=== PATIENT | male | born 1995 | race African-American/Black ===

== ENCOUNTER 2018-03-27 09:52 | Emergency (ER) | payer OTHER | END 2018-03-27 11:14 | disposition home or self-care (01) | LOC: M ED 09:52 | DX: F41.0 Panic disorder [episodic paroxysmal anxiety] (principal) | CPT/HCPCS: 99284 ==

== ENCOUNTER 2018-05-07 15:04 | Inpatient (IN) | payer OTHER ==
[2018-05-07 16:33] LABS: HEMATOCRIT 42.5 % (42.0-52.0); HEMOGLOBIN 14.1 g/dl (13.5-17.5); MEAN CORPUSCULAR HEMOGLOBIN 29.6 pg (27.0-33.0); MEAN CORPUSCULAR HGB CONC 33.2 g/dl (32.0-36.5); MEAN CORPUSCULAR VOLUME 89.1 fl (80.0-96.0); PLATELET COUNT, AUTOMATED 187 10^3/uL (150-450); RED BLOOD COUNT 4.77 10^6/uL (4.30-6.10); RED CELL DISTRIBUTION WIDTH 12.5 % (11.5-14.5); WHITE BLOOD COUNT 6.6 10^3/uL (4.0-10.0)
[2018-05-07 17:07] LABS: ALBUMIN 4.1 GM/DL (3.2-5.2); ALBUMIN/GLOBULIN RATIO 1.14 (1.00-1.93); ALKALINE PHOSPHATASE 110 U/L (45-117); ALT/SGPT 24 U/L (12-78); ANION GAP 7 MEQ/L (8-16); AST/SGOT 16 U/L (7-37); BILIRUBIN,DIRECT 0.2 MG/DL (0.0-0.2); BILIRUBIN,TOTAL 0.8 MG/DL (0.2-1.0); BLOOD UREA NITROGEN 13 MG/DL (7-18); CALCIUM LEVEL 8.9 MG/DL (8.5-10.1); CARBON DIOXIDE LEVEL 26 MEQ/L (21-32); CHLORIDE LEVEL 109 MEQ/L (98-107); CREATININE FOR GFR 0.92 MG/DL (0.70-1.30); ETHYL ALCOHOL (ETHANOL) < 0.003 % (0.000-0.010); GLUCOSE, FASTING 86 MG/DL (70-100); POTASSIUM SERUM 4.2 MEQ/L (3.5-5.1); SALICYLATE LEVEL < 1.7 MG/DL (5.0-30.0); SODIUM LEVEL 142 MEQ/L (136-145); THYROID STIMULATING HORMONE 0.877 uIU/ML (0.463-3.98); TOTAL PROTEIN 7.7 GM/DL (6.4-8.2)
[2018-05-07 17:13] LABS: ACETAMINOPHEN LEVEL < 2.0 UG/ML (10.0-30.0)
[2018-05-07 17:21] LABS: AMPHETAMINES LEVEL URINE NEGATIVE (NEGATIVE); BARBITURATES URINE NEGATIVE (NEGATIVE); BENZODIAZEPINES URINE NEGATIVE (NEGATIVE); CANNABINOIDS URINE POSITIVE (NEGATIVE); COCAINE METABOLITE URINE NEGATIVE (NEGATIVE); METHADONE URINE NEGATIVE (NEGATIVE); OPIATES URINE NEGATIVE (NEGATIVE); PHENCYCLIDINE URINE NEGATIVE (NEGATIVE)
[2018-05-07] MEDS ORDERED: LORazepam 1 MG TAB As Ordered (19:14)
[2018-05-07] MEDS ORDERED: OLANZapine ORAL DISINTEGRATING TAB 5MG As Ordered (19:14)
[2018-05-07] MEDS: HALOPERIDOL 5 MG/ML VIAL (J1630) IM (19:54)
[2018-05-07] MEDS: LORazepam 2 MG/ML VIAL (J2060) IM (19:55)
[2018-05-07] MEDS ORDERED: OLANZapine ORAL DISINTEGRATING TAB 5MG PO (20:30)
[2018-05-07] MEDS ORDERED: ACETAMINOPHEN TAB 650MG DOSE (2X325MG) PO (20:30)
[2018-05-07] MEDS ORDERED: MAALOX 30 ML SUSP *UDC PO (20:30)
[2018-05-07] MEDS ORDERED: LORazepam 1 MG TAB PO (20:30)
[2018-05-07] MEDS ORDERED: MOM 30ML SUSPENSION UDC PO (20:30)
[2018-05-08] MEDS: QUEtiapine FUMARATE 100 MG TAB PO (12:58)
[2018-05-08] MEDS: NICOTINE 21MG/24HR 1 EA TRANSDERMAL TD (13:10)
[2018-05-08] MEDS ORDERED: NICOTINE 21MG/24HR 1 EA TRANSDERMAL TD (13:45)
[2018-05-08] MEDS: busPIRone 5 MG TAB PO (23:32)
[2018-05-08] MEDS: QUEtiapine FUMARATE 25 MG TAB PO (23:32)
[2018-05-08] MEDS: traZODone 50 MG TAB PO (23:32)
[2018-05-09] MEDS: QUEtiapine FUMARATE 25 MG TAB PO ×3 (08:44→21:23)
[2018-05-09] MEDS: busPIRone 5 MG TAB PO ×3 (08:44→21:23)
[2018-05-09] MEDS: NICOTINE 21MG/24HR 1 EA TRANSDERMAL TD (08:45)
[2018-05-09] MEDS: traZODone 50 MG TAB PO (21:23)
[2018-05-10] MEDS: busPIRone 5 MG TAB PO (09:25)
[2018-05-10] MEDS: QUEtiapine FUMARATE 25 MG TAB PO (09:25)
[2018-05-10] MEDS: NICOTINE 21MG/24HR 1 EA TRANSDERMAL TD (09:28)
== END 2018-05-10 13:00 | disposition home or self-care (01) | DRG 885 ==
LOC: M ED 15:04 → M ED INP 18:14 → M PSY 19:00
DX: F33.9 Major depressive disorder, recurrent, unspecified (principal); R45.851 Suicidal ideations; F41.1 Generalized anxiety disorder; F12.90 Cannabis use, unspecified, uncomplicated; F10.10 Alcohol abuse, uncomplicated

== ENCOUNTER 2018-06-16 22:56 | Emergency (ER) | payer OTHER | END 2018-06-17 01:24 | disposition left against medical advice (07) | LOC: M ED 22:56 | DX: Z53.29 Procedure and treatment not carried out because of patient's decision for other reasons (principal) ==

== ENCOUNTER 2018-10-20 16:06 | Emergency (ER) | payer OTHER ==
[~2018-10-20] VITALS: Ht 190.5 cm; Wt 86.4 kg
[~2018-10-20 16:06] MED LIST: BUSP5TA PO; HYDR-643 PO; PARO20TA3 PO; PATIENT COMMENT; QUET1TAB7 PO; TRAZO50TA PO
[2018-10-20] MEDS ORDERED: HALOPERIDOL 5 MG/ML VIAL (J1630) IM ONE (16:30)
[2018-10-20] MEDS ORDERED: diphenhydrAMINE INJ 50MG/ML VIAL (J1200) IM ONE (16:30)
[2018-10-20] MEDS ORDERED: LORazepam 2 MG/ML VIAL (J2060) IM ONE (16:30)
[2018-10-20 17:33] LABS: HEMATOCRIT 42.1 % (42.0-52.0); HEMOGLOBIN 14.2 g/dl (13.5-17.5); MEAN CORPUSCULAR HEMOGLOBIN 29.8 pg (27.0-33.0); MEAN CORPUSCULAR HGB CONC 33.7 g/dl (32.0-36.5); MEAN CORPUSCULAR VOLUME 88.4 fl (80.0-96.0); PLATELET COUNT, AUTOMATED 246 10^3/uL (150-450); RED BLOOD COUNT 4.76 10^6/uL (4.30-6.10); WHITE BLOOD COUNT 9.8 10^3/uL (4.0-10.0)
[2018-10-20 17:59] LABS: AMPHETAMINES LEVEL URINE NEGATIVE (NEGATIVE); BARBITURATES URINE NEGATIVE (NEGATIVE); BENZODIAZEPINES URINE NEGATIVE (NEGATIVE); CANNABINOIDS URINE POSITIVE (NEGATIVE); COCAINE METABOLITE URINE NEGATIVE (NEGATIVE); METHADONE URINE NEGATIVE (NEGATIVE); OPIATES URINE NEGATIVE (NEGATIVE); PHENCYCLIDINE URINE NEGATIVE (NEGATIVE)
[2018-10-20 18:09] LABS: ACETAMINOPHEN LEVEL < 2.0 UG/ML (10.0-30.0); ALBUMIN 4.4 GM/DL (3.2-5.2); ALT/SGPT 36 U/L (12-78); BILIRUBIN,DIRECT 0.3 MG/DL (0.0-0.2); BILIRUBIN,TOTAL 1.3 MG/DL (0.2-1.0); BLOOD UREA NITROGEN 12 MG/DL (7-18); CARBON DIOXIDE LEVEL 24 MEQ/L (21-32); CHLORIDE LEVEL 104 MEQ/L (98-107); CREATININE FOR GFR 1.07 MG/DL (0.70-1.30); ETHYL ALCOHOL (ETHANOL) < 0.003 % (0.000-0.010); GLOMERULAR FILTRATION RATE > 60.0 (>60); GLUCOSE, FASTING 80 MG/DL (70-100); POTASSIUM SERUM 3.8 MEQ/L (3.5-5.1); SALICYLATE LEVEL < 1.7 MG/DL (5.0-30.0); SODIUM LEVEL 138 MEQ/L (136-145); THYROID STIMULATING HORMONE 0.564 uIU/ML (0.358-3.740)
[2018-10-20 20:53] VITALS: BP 128/74
== END 2018-10-20 20:55 | disposition home or self-care (01) ==
LOC: M ED 16:06
DX: F43.0 Acute stress reaction (principal); F32.9 Major depressive disorder, single episode, unspecified; F12.10 Cannabis abuse, uncomplicated; F10.10 Alcohol abuse, uncomplicated
CPT/HCPCS: 36415; 80048; 80076; 80307; 84443; 85027; 99284; G0480

== ENCOUNTER 2018-10-22 10:21 | Inpatient (IN) | payer OTHER ==
[~2018-10-22] VITALS: Ht 185.4 cm; Wt 87.5 kg
[2018-10-22 11:56] LABS: HEMATOCRIT 42.1 % (42.0-52.0); HEMOGLOBIN 14.3 g/dl (13.5-17.5); MEAN CORPUSCULAR HEMOGLOBIN 30.2 pg (27.0-33.0); MEAN CORPUSCULAR VOLUME 88.8 fl (80.0-96.0); PLATELET COUNT, AUTOMATED 229 10^3/uL (150-450); RED BLOOD COUNT 4.74 10^6/uL (4.30-6.10); WHITE BLOOD COUNT 5.8 10^3/uL (4.0-10.0)
[2018-10-22 12:31] LABS: AMPHETAMINES LEVEL URINE NEGATIVE (NEGATIVE); BARBITURATES URINE NEGATIVE (NEGATIVE); BENZODIAZEPINES URINE NEGATIVE (NEGATIVE); CANNABINOIDS URINE POSITIVE (NEGATIVE); COCAINE METABOLITE URINE NEGATIVE (NEGATIVE); METHADONE URINE NEGATIVE (NEGATIVE); OPIATES URINE NEGATIVE (NEGATIVE); PHENCYCLIDINE URINE NEGATIVE (NEGATIVE)
[2018-10-22 12:36] LABS: ACETAMINOPHEN LEVEL < 2.0 UG/ML (10.0-30.0); ALBUMIN 4.4 GM/DL (3.2-5.2); ALT/SGPT 40 U/L (12-78); BILIRUBIN,DIRECT 0.3 MG/DL (0.0-0.2); BILIRUBIN,TOTAL 1.2 MG/DL (0.2-1.0); BLOOD UREA NITROGEN 11 MG/DL (7-18); CALCIUM LEVEL 8.9 MG/DL (8.5-10.1); CARBON DIOXIDE LEVEL 28 MEQ/L (21-32); CHLORIDE LEVEL 104 MEQ/L (98-107); CREATININE FOR GFR 0.92 MG/DL (0.70-1.30); ETHYL ALCOHOL (ETHANOL) < 0.003 % (0.000-0.010); GLOMERULAR FILTRATION RATE > 60.0 (>60); GLUCOSE, FASTING 103 MG/DL (70-100); POTASSIUM SERUM 4.2 MEQ/L (3.5-5.1); SALICYLATE LEVEL < 1.7 MG/DL (5.0-30.0); SODIUM LEVEL 138 MEQ/L (136-145); THYROID STIMULATING HORMONE 0.603 uIU/ML (0.358-3.740); TOTAL PROTEIN 7.9 GM/DL (6.4-8.2)
[2018-10-22] MEDS ORDERED: ACETAMINOPHEN TAB 650MG DOSE (2X325MG) PO PRN (13:00)
[2018-10-22] MEDS ORDERED: MAALOX 30 ML SUSP *UDC PO PRN (13:00)
[2018-10-22] MEDS ORDERED: MOM 30ML SUSPENSION UDC PO PRN (13:00)
[2018-10-22] MEDS ORDERED: IBUP80TA PO (15:07)
[2018-10-22] MEDS: NICOTINE 14 MG/24 HR TRANSDERMAL TD SCH (15:55)
[2018-10-22] MEDS ORDERED: LORazepam 2 MG TAB PO PRN (20:45)
[2018-10-22] MEDS: FOLIC ACID 1 MG TAB PO SCH (21:36)
[2018-10-22] MEDS: THIAMINE 100 MG TAB PO SCH (21:36)
[2018-10-22] MEDS: MULTIVITAMINS/MINERALS THERAP 1 TAB PO SCH (21:36)
[2018-10-22] MEDS: traZODone 50 MG TAB PO PRN (22:24)
[2018-10-23 06:00] VITALS: BP 108/65
[2018-10-23 06:52] VITALS: BP 108/65
[2018-10-23 08:38] VITALS: BP 108/65
[2018-10-23] MEDS ORDERED: NICOTINE 14 MG/24 HR TRANSDERMAL TD SCH (09:00)
[2018-10-23] MEDS: FOLIC ACID 1 MG TAB PO SCH (09:50)
[2018-10-23] MEDS: THIAMINE 100 MG TAB PO SCH ×2 (09:50→20:42)
[2018-10-23] MEDS: MULTIVITAMINS/MINERALS THERAP 1 TAB PO SCH (09:50)
[2018-10-23] MEDS: NICOTINE 14 MG/24 HR TRANSDERMAL TD SCH (09:53)
--- NOTE | 2018-10-23 10:03 | HPEPDOC ---
[facility] Medical History & Physical Date of Admission Oct 22, 2018 History and Physical PCP: [facility] ATTENDING: Dr. Alejandra Oviedo HPI: 23yoM admitted to [facility] for unspecified depressive disorder, being medically examined today. No acute medical complaints today. Denies any fevers, chills, weakness, fatigue, FERNANDEZ, CP, SOB, cough, palpitations, abdominal pain, N/V/D or changes in bowel or bladder habits. PMHx: Anxiety Panic attack Depression History of SI PSHX: Rt arm fracture repair as child SOCHX: Resides in: [place], originally from [place] Marital Status: Kids: None Employment: Active duty Tobacco use: Denies ETOH: States "alot" per night Illicit Drugs: marijuana IV Drug Use: Denies Tattoos done unprofessionally: Denies FAMHX: Mother: Alive, well Father: Alive, diabetes, prostate cancer Siblings: One brother Alive, well Children: None Unexpected deaths due to medical reasons: None. ROS: As noted in HPI, otherwise 11pt ROS of systems reviewed and unremarkable. PE: GEN: 23yoM, appears stated age. Well-nourished, well developed. No acute distress. Alert and oriented x 3. Pleasant, interactive. HEENT: Normocephalic, atraumatic. Pupils are equal, round, and reactive to light. Extraocular movements are intact. No nystagmus appreciated. Sclera are nonicteric. Conjunctiva without injection. Nose midline. Nasal turbinates without bogginess. EACs both patent BL. TMs both visualized and iglesias with good cone of light, no bulging or erythema. No facial asymmetry. Moist mucous membranes. Dentition fair. Pharynx pink and moist, no cobblestoning. Neck supple, trachea midline. No lymphadenopathy or thyromegaly appreciated. CHEST: Regular rate and rhythm, +S1, +S2 LUNGS: Clear to auscultation bilaterally. No wheezes, rales, or rhonchi. Breathing appears symmetric and easy. Patient is speaking in full sentences. No accessory muscle use. ABD: Round, soft, non-tender, non-distended. +Bowel sounds throughout. No rebound or guarding. No costovertebral angle tenderness. EXT: Pulses 2+ bilaterally dorsalis pedis and radial. No lower extremity edema appreciated. SKIN: Maria Antonia, dry, warm. Capillary refill <2sec. No rashes. NEURO: Alert and oriented x 3. Cranial nerves III-XII are intact. No focal deficits appreciated. EKG: pending A&P: 23yoM admitted to [facility] for unspecified depressive disorder, 1. Psych. Plan per Psychiatry. Obtain baseline EKG to assure the safety of psychiatric medications as they can prolong the QT interval. 2. Follow up with PCP on discharge. 3. Substance use. Management per psychiatry. Continue with MVI, Thiamine, and Folic Acid supplementation. Vital Signs Vital Signs Date Time Temp Pulse Resp B/P (MAP) Pulse Ox O2 Delivery O2 Flow Rate FiO2 10/23/18 08:38 97 108/65 10/23/18 06:52 98.9 14 10/22/18 15:03 97 10/22/18 10:33 Room Air Laboratory Data Labs 24H Laboratory Tests 2 10/22/18 11:39: Urine Amphetamines Screen NEGATIVE, Urine Benzodiazepines Screen NEGATIVE, Urine Opiates Screen NEGATIVE, Urine Methadone Screen NEGATIVE, Urine Barbiturates Screen NEGATIVE, Urine Phencyclidine Screen NEGATIVE, Urine Cocaine Metabolite Screen NEGATIVE, Urine Cannabinoids Screen POSITIVEH 10/22/18 11:44: Nucleated Red Blood Cells % (auto) 0.0, Anion Gap 6L, Glomerular Filtration Rate > 60.0, Calcium Level 8.9, Aspartate Amino Transf (AST/SGOT) 39H, Alanine Aminotransferase (ALT/SGPT) 40, Alkaline Phosphatase 100, Total Bilirubin 1.2H, Direct Bilirubin 0.3H, Total Protein 7.9, Albumin 4.4, Albumin/Globulin Ratio 1.26, Thyroid Stimulating Hormone (TSH) 0.603, Salicylates Level < 1.7L, Acetaminophen Level < 2.0L, Ethyl Alcohol Level < 0.003 CBC/BMP Laboratory Tests 10/22/18 11:44 Red Blood Count 4.74, Mean Corpuscular Volume 88.8, Mean Corpuscular Hemoglobin 30.2, Mean Corpuscular Hemoglobin Concent 34.0, Red Cell Distribution Width 12.7 Home Medications Scheduled PRN Ibuprofen (Ibuprofen) 800 Mg Tab, 800 MG PO TID PRN for PAIN Allergies Coded Allergies: No Known Allergies (Unverified , 03/29/18) Josie Serrano Oct 23, 2018 10:03
[2018-10-23] MEDS ORDERED: LORazepam 2 MG TAB PO STA (11:24)
--- NOTE | 2018-10-23 12:05 | MHHPEPDOC ---
General Date Of Admission: Oct 22, 2018 Legal Status: 9.39 Chief Complaint "I've been suicidal, they threw me in the barracks, they just don't care" History of Present Illness HISTORY OF THE PRESENT ILLNESS: Patient is a 23 -year-old , male, who according to ED report: "Reason for Referral: Pt was brought to the ED by his due to SI with no plan. He also c/o increasing depression & anxiety. Chief Complaint Pt was seen in the ED & discharged on 10/20/18. At that time, he was found by MP's in his car with a razor in his hand. He told ED staff that he was not suicidal at that time. Today he states that he lied & he really was suicidal that day. He continues to be suicidal today but without a plan. He also c/o panic attacks. He has had anxiety & depression for the past year, but it has become worse during the past six months. His main stressor is that he does not like being in the [employer]. His job makes him anxious & when he becomes anxious he tends to avoid the trigger. Therefore, he has been late to formation several times & recently received an Article 15 & is currently on extra duty." Psychiatric Review of Systems Depression (2 or more weeks): depressed mood, anhedonia, insomnia/hypersomnia, feelings of excess/guilt, feelings of worthlesness, decreased energy, difficulty concentrating, appetite changes, psychomotor changes, suicidal thoughts Lexis (4 or more days of): denies PTSD: denies Anxiety: gen/non-specific anxiety, situational anxiety, stressor related anxiety, panic attacks Anxiety/ 6 months or more of: restlessness, keyed up, easily fatigued, difficulty concentrating, irritability, muscle tension, sleep disturbance Past Psychiatric History Previous Psychiatric Diagnosis: Major Depressive disorder, recurrent. R/O bipolar disorder mixed Previous Psychiatric Admissions: March 2018, Suicide Attempts: . Psychiatric Follow-up: [facility] Psychiatric medications: Atarax, Paxil and Trazodone Past Medical History Medical Problems None Head Injury: No Seizures: No Hospitalizations: Yes Surgeries: No Family Medical/Psychiatric HX Psychiatric Disorders: Yes (His mother has bipolar disorder) Addiction: No Suicide Attemps/Completions: No Addiction History other (Amanda, he recently tested positive for it (now in the ED, before [facility])) Social History PATIENT DEVELOPED A PANICK ATTACK WHEN I WAS INTERVIEWING AND REFUSED TO PROVIDE WITH MORE INFORMATION, HE SAID HE JUST WANTED TO SLEEP AND NOT TALK TO ANYONE. THE FOLLOWING INFORMATION WAS OBTAINED FROM PATIENT'S PREVIOUS RECORDS (DR. HARGROVE'S NOTE ON HIM) s per Dr. Hargrove's note on previous hospitalization: " Patient was born and raised in [place], [place]. Relationship with his mother is good. She has history of bipolar disorder. Relationship with his father is poor. He has little contact with his father. Patient had one brother. Patient has a good w ork history before joining the [employer]. Patient is . His is a college student. Currently he has college in [place]. Patient has no children." Mental Status Examination General Appearance: well groomed, appears stated age, hospital scubs/clothing Build: average Demeanor: mistrustful, withdrawn, preoccupied, very figety Eye Contact: avoidant, poor Activity: agitated, anxious Behavior: cooperative, restless Speech: spontaneous, low in volume Mood: depressed, anxious Affect: constricted, flat, labile, anxious Thought Process: logical/linear, associative Thought Content (Delusions): none reported Thought Content (Other): ideas of reference Thought Content (Aggressive): none reported Perception (Hallucinations): none reported Perception (Other): none reported Cognition (Impairment of): none reported Cognition(Intelligence Est.): average Oriented: Awake, Alert, Oriented times three Insight: poor Judgment: Poor Psychosis: Denies Diagnoses 1. Major Depressive Disorder, recurrent 2. Panic attacks, r/O Panic disorder Assessment Patient is very labile, he experienced a panic attack while I was interviewing him he became tearful, he said he was tired of telling everyone he eas depressed and suicidal. He expressed his hopelessness and helplessness. He is very ill but he is probably more anxious because he knows he tested positive for marihuana and that is going to create more problems for him in the [employer]. Initial Treatment Plan 1. Patient was admitted on a [9.39] status. 2. Complete history was obtained. 3. With patients permission, family will be contacted and database will be expanded. 4. Patients medication regimen will be reviewed and changed accordingly. 5. Patient will be provided with protected environment. 6. Patient will be treated with individual, group, and milieu therapies. 7. Patient will receive supportive psych-education. 8. Discharge planning will commence immediately. 9. Outpatient follow-up treatment will be strongly recommended. 10. The initial treatment plan will focus initially on: * Depression. * Anxiety * Risk for suicide. * Substance abuse. ESTIMATED LENGTH OF STAY: 5-7DAYS. TIME SPENT COUNSELING AND COORDINATING INITIAL CARE: 45 minutes. Vital Signs Vital Signs Date Time Temp Pulse Resp B/P (MAP) Pulse Ox O2 Delivery O2 Flow Rate FiO2 10/23/18 08:38 97 108/65 10/23/18 06:52 98.9 14 10/22/18 15:03 97 10/22/18 10:33 Room Air Medications Scheduled PRN Ibuprofen (Ibuprofen) 800 Mg Tab, 800 MG PO TID PRN for PAIN, (Reported) Allergies Coded Allergies: No Known Allergies (Unverified , 03/29/18) MERLENE YIN MD Oct 23, 2018 11:52
[2018-10-23] MEDS: SERTRALINE HCL 50 MG TAB PO SCH (12:57)
[2018-10-23] MEDS: GABAPENTIN 100 MG CAP PO SCH ×2 (15:44→20:42)
[2018-10-23 18:00] VITALS: BP 127/78
[2018-10-23] MEDS: PROPRANOLOL 10 MG TAB PO PRN (20:42)
[2018-10-23 20:48] VITALS: BP 125/80
[2018-10-23] MEDS: traZODone 50 MG TAB PO PRN (22:52)
--- NOTE | 2018-10-24 00:51 | ECGEPIP ---
Stationary ECG Study [facility] Test Date: 2018-10-23 Pat Name: GISELL LEE Department: Room: [place] [address] Gender: M [employer] Supervisor: MELY : 1995 Requested By: Josie Serrano Order Number: [id number] Reading MD: Tez Martin Measurements Intervals Patrick Rate: 87 P: 56 DC: 124 QRS: 40 QRSD: 93 T: 27 QT: 357 QTc: 430 Interpretive Statements SINUS RHYTHM WITH SINUS ARRHYTHMIA NONSPECIFIC T-WAVE ABNORMALITY PRIOR TRACING ON 03/30/2018 AT 15:34:01, MILD SINUS BRADYCARDIA THEN WAS NOTED Electronically Signed On 10-24-2018 0:51:08 EST by Tez Martin
[2018-10-24 06:30] VITALS: BP 125/80
[2018-10-24 06:53] VITALS: BP 123/57
[2018-10-24] MEDS: MULTIVITAMINS/MINERALS THERAP 1 TAB PO SCH (09:48)
[2018-10-24] MEDS: GABAPENTIN 100 MG CAP PO SCH ×3 (09:48→20:37)
[2018-10-24] MEDS: SERTRALINE HCL 50 MG TAB PO SCH (09:48)
[2018-10-24] MEDS: THIAMINE 100 MG TAB PO SCH ×2 (09:48→20:37)
[2018-10-24] MEDS: FOLIC ACID 1 MG TAB PO SCH (09:48)
[2018-10-24] MEDS: NICOTINE 14 MG/24 HR TRANSDERMAL TD SCH (09:49)
[2018-10-24 14:00] VITALS: BP 118/72
[2018-10-24 18:00] VITALS: BP 129/64
--- NOTE | 2018-10-24 19:29 | MHIPNPDOC ---
[facility] Progress Note Progress Note DATE OF SERVICE: 10/24/18 HISTORY: Chief Complaint "I've been suicidal, they threw me in the barracks, they just don't care" History of Present Illness HISTORY OF THE PRESENT ILLNESS: Patient is a 23 -year-old , male, who according to ED report: "Reason for Referral: Pt was brought to the ED by his due to SI with no plan. He also c/o increasing depression & anxiety. Chief Complaint Pt was seen in the ED & discharged on 10/20/18. At that time, he was found by MP's in his car with a razor in his hand. He told ED staff that he was not suicidal at that time. Today he states that he lied & he really was suicidal that day. He continues to be suicidal today but without a plan. He also c/o panic attacks. He has had anxiety & depression for the past year, but it has become worse during the past six months. His main stressor is that he does not like being in the [employer]. His job makes him anxious & when he becomes anxious he tends to avoid the trigger. Therefore, he has been late to formation several times & recently received an Article 15 & is currently on extra duty." VITAL SIGNS: See below. NEW TEST RESULTS: See below CURRENT MEDICATIONS: See below. MENTAL STATUS EXAMINATION: General Appearance: well groomed, appears stated age, hospital scubs/clothing Build: average Demeanor: apathetic, psychomotor retardation, laying in bed, Eye Contact: avoidant, poor Activity: slow, laying in bed, psychomotor retardation Behavior: cooperative, withdrawn, depressed Speech: impoverished, non spontaneous,short, brief, shallow responses, low in volume Mood: depressed Affect: constricted, flat, labile, anxious Thought Process: logical/linear, associative Thought Content (Delusions): none reported Thought Content (Other): ideas of reference Thought Content (Aggressive): none reported Perception (Hallucinations): none reported Perception (Other): none reported Cognition (Impairment of): none reported Cognition(Intelligence Est.): average Oriented: Awake, Alert, Oriented times three Insight: poor Judgment: Poor Psychosis: Denies Diagnoses 1. Major Depressive Disorder, recurrent 2. Panic attacks, r/O Panic disorder ASSESSMENT: Patient continues to be depressed, but he has not had any other episodes of severe anxiety as he did yesterday. he is hopeless,helpless, says he has less suicidal ideation but reports feeling better, his suicidal thoughts are less frequent and intense. MANAGEMENT PLAN: Will continue with the same treatment plan TIME SPENT: 15 minutes. Vital Signs Vital Signs Date Time Temp Pulse Resp B/P (MAP) Pulse Ox O2 Delivery O2 Flow Rate FiO2 10/24/18 18:00 97.7 67 16 129/64 (85) 10/22/18 15:03 97 10/22/18 10:33 Room Air Current Medications Current Medications Acetaminophen (Tylenol Tab) 650 mg Q6HP PRN PO HEADACHE or DISCOMFORT; Start 10/22/18 at 13:00 Al Hydrox/Mg Hydrox/Simethicone (Mylanta) 30 ml Q4HP PRN PO HEARTBURN/INDIGESTION; Start 10/22/18 at 13:00 Aripiprazole (AbiLIFY) 2.5 mg QHS PO Last administered on 10/23/18at 20:41; Start 10/23/18 at 21:00 Folic Acid (Folic Acid) 1 mg DAILY PO Last administered on 10/24/18at 09:48; Start 10/22/18 at 09:00 Gabapentin (Neurontin) 200 mg TID PO Last administered on 10/24/18at 15:37; Start 10/23/18 at 16:00 Home Med (Med Rec Complete!) ASDIRECTED XX ; Start 10/22/18 at 15:15; Stop 10/22/18 at 15:15; Status DC Lorazepam (Ativan) 2 mg ASDIRECTED PRN PO SEE PROTOCOL; Start 10/22/18 at 20:45 Lorazepam (Ativan) 2 mg STAT STAT PO Last administered on 10/23/18at 11:28; Start 10/23/18 at 11:24; Stop 10/23/18 at 11:26; Status DC Magnesium Hydroxide (Milk Of Magnesia) 30 ml DAILYPRN PRN PO CONSTIPATION; Start 10/22/18 at 13:00 Multivitamins (Theragram-M) 1 tab DAILY PO Last administered on 10/24/18at 09:48; Start 10/22/18 at 09:00 Nicotine (Nicoderm Cq 14mg) 1 patch DAILY TD Last administered on 10/24/18at 09:49; Start 10/22/18 at 09:00 Nicotine (Nicoderm Cq 14mg) 1 patch DAILY TD ; Start 10/23/18 at 09:00; Stop 10/23/18 at 09:00; Status DC Propranolol HCl (Inderal) 10 mg TID PRN PO ANXIETY/AGITATION Last administered on 10/23/18at 20:42; Start 10/23/18 at 12:30 Sertraline HCl (Zoloft) 50 mg QAM PO Last administered on 10/24/18 09:48; Start 10/23/18 at 09:00 Thiamine HCl (Thiamine HCl) 100 mg BID PO Last administered on 10/24/18at 09:48; Start 10/22/18 at 21:00; Stop 10/25/18 at 09:01 Trazodone HCl (Desyrel) 50 mg QHSP PRN PO INSOMNIA Last administered on 10/23/18at 22:52; Start 10/22/18 at 13:00 Allergies Coded Allergies: No Known Allergies (Unverified , 03/29/18) MERLENE YIN MD Oct 24, 2018 19:21
[2018-10-24] MEDS: traZODone 50 MG TAB PO PRN (21:48)
[2018-10-25 07:04] VITALS: BP 108/58
[2018-10-25] MEDS: SERTRALINE HCL 50 MG TAB PO SCH (09:47)
[2018-10-25] MEDS: FOLIC ACID 1 MG TAB PO SCH (09:47)
[2018-10-25] MEDS: THIAMINE 100 MG TAB PO SCH (09:47)
[2018-10-25] MEDS: GABAPENTIN 100 MG CAP PO SCH ×3 (09:47→22:08)
[2018-10-25] MEDS: MULTIVITAMINS/MINERALS THERAP 1 TAB PO SCH (09:47)
[2018-10-25] MEDS: NICOTINE 14 MG/24 HR TRANSDERMAL TD SCH (09:48)
[2018-10-25 18:00] VITALS: BP 130/84
[2018-10-25 21:36] VITALS: BP 130/84
[2018-10-25] MEDS: traZODone 50 MG TAB PO PRN (22:09)
[2018-10-26 07:48] VITALS: BP 137/61
[2018-10-26] MEDS: FOLIC ACID 1 MG TAB PO SCH (09:31)
[2018-10-26] MEDS: GABAPENTIN 100 MG CAP PO SCH ×3 (09:31→22:20)
[2018-10-26] MEDS: SERTRALINE HCL 25 MG TABLET PO SCH (09:32)
[2018-10-26] MEDS: MULTIVITAMINS/MINERALS THERAP 1 TAB PO SCH (09:32)
[2018-10-26] MEDS: NICOTINE 14 MG/24 HR TRANSDERMAL TD SCH (09:32)
[2018-10-26 10:13] VITALS: BP 137/61
--- NOTE | 2018-10-26 14:50 | MHIPNPDOC ---
[facility] Progress Note Progress Note DATE OF SERVICE: 10/26/18 CHIEF COMPLAINT: "I've been suicidal, they threw me in the barracks, they just don't care" HISTORY OF THE PRESENT ILLNESS: Patient is a 23 -year-old , male, who according to ED report: "Pt was brought to the ED by his due to SI with no plan. He also c/o increasing depression & anxiety. Pt was seen in the ED & discharged on 10/20/18. At that time, he was found by MP's in his car with a razor in his hand. He told ED staff that he was not suicidal at that time. Today he states that he lied & he really was suicidal that day. He continues to be suicidal today but without a plan. He also c/o panic attacks. He has had anxiety & depression for the past year, but it has become worse during the past six months. His main stressor is that he does not like being in the [employer]. His job makes him anxious & when he becomes anxious he tends to avoid the trigger. Therefore, he has been late to formation several times & recently received an Article 15 & is currently on extra duty." VITAL SIGNS: See below. NEW TEST RESULTS: See below CURRENT MEDICATIONS: See below. MENTAL STATUS EXAMINATION: General Appearance: well groomed, appears stated age, hospital scubs/clothing Build: average Demeanor: apathetic, psychomotor agitation laying in bed, Eye Contact: avoidant, poor Activity: slow, laying in bed, psychomotor retardation Behavior: cooperative, withdrawn, depressed Speech: impoverished, non spontaneous,short, brief, shallow responses, low in volume Mood: depressed / anxious Affect: constricted, flat, labile, anxious Thought Process: logical/linear, associative Thought Content (Delusions): none reported Thought Content (Other): ideas of reference Thought Content (Aggressive): none reported Perception (Hallucinations): none reported Perception (Other): none reported Cognition (Impairment of): none reported Cognition(Intelligence Est.): average Oriented: Awake, Alert, Oriented times three Insight: poor Judgment: Poor Psychosis: Denies DIAGNOSIS 1. Major Depressive Disorder, recurrent 2. Panic attacks, r/O Panic disorder ASSESSMENT: Patient continues to be both depressed and anxious. He has been attending groups but is unsure regarding their usefulness. He does complain of being excessively tired. Patient was informed that this is likely a side effect of his medication. A plan was devised with Tayo to take his medication around 7 at night once he returns to post. 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 He was agreeable with this plan. MANAGEMENT PLAN: Will continue with the same treatment plan TIME SPENT: 15 minutes. Vital Signs Vital Signs Date Time Temp Pulse Resp B/P (MAP) Pulse Ox O2 Delivery O2 Flow Rate FiO2 10/26/18 10:13 97.7 58 14 137/61 97 10/22/18 10:33 Room Air Current Medications Current Medications Acetaminophen (Tylenol Tab) 650 mg Q6HP PRN PO HEADACHE or DISCOMFORT; Start 10/22/18 at 13:00 Al Hydrox/Mg Hydrox/Simethicone (Mylanta) 30 ml Q4HP PRN PO HEARTBURN/INDIGESTION; Start 10/22/18 at 13:00 Aripiprazole (AbiLIFY) 2.5 mg QHS PO Last administered on 10/25/18at 21:00; Start 10/23/18 at 21:00 Folic Acid (Folic Acid) 1 mg DAILY PO Last administered on 10/26/18at 09:31; Start 10/22/18 at 09:00 Gabapentin (Neurontin) 200 mg TID PO Last administered on 10/26/18at 09:31; Start 10/23/18 at 16:00 Home Med (Med Rec Complete!) ASDIRECTED XX ; Start 10/22/18 at 15:15; Stop 10/22/18 at 15:15; Status DC Lorazepam (Ativan) 2 mg ASDIRECTED PRN PO SEE PROTOCOL; Start 10/22/18 at 20:45 Lorazepam (Ativan) 2 mg STAT STAT PO Last administered on 10/23/18at 11:28; Start 10/23/18 at 11:24; Stop 10/23/18 at 11:26; Status DC Magnesium Hydroxide (Milk Of Magnesia) 30 ml DAILYPRN PRN PO CONSTIPATION; Start 10/22/18 at 13:00 Multivitamins (Theragram-M) 1 tab DAILY PO Last administered on 10/26/18at 09:32; Start 10/22/18 at 09:00 Nicotine (Nicoderm Cq 14mg) 1 patch DAILY TD Last administered on 10/26/18 09:32; Start 10/22/18 at 09:00 Nicotine (Nicoderm Cq 14mg) 1 patch DAILY TD ; Start 10/23/18 at 09:00; Stop 10/23/18 at 09:00; Status DC Propranolol HCl (Inderal) 10 mg TID PRN PO ANXIETY/AGITATION Last administered on 10/23/18at 20:42; Start 10/23/18 at 12:30 Sertraline HCl (Zoloft) 50 mg QAM PO Last administered on 10/25/18at 09:47; Start 10/23/18 at 09:00; Stop 10/25/18 at 19:20; Status DC Sertraline HCl (Zoloft) 75 mg QAM PO Last administered on 10/26/18 09:32; Start 10/26/18 at 09:00 Thiamine HCl (Thiamine HCl) 100 mg BID PO Last administered on 10/25/18at 09:47; Start 10/22/18 at 21:00; Stop 10/25/18 at 09:01; Status DC Trazodone HCl (Desyrel) 50 mg QHSP PRN PO INSOMNIA Last administered on 10/25/18at 22:09; Start 10/22/18 at 13:00 Allergies Coded Allergies: No Known Allergies (Unverified , 03/29/18) GME ATTESTATION GME ATTESTATION My faculty preceptor for this patient encounter was physically present during the encounter and was fully available. All aspects of the patient interview, examination, medical decision making process, and medical care plan development were reviewed and approved by the faculty preceptor. The faculty preceptor is aware and concurs with the plan as stated in the body of this note and will attest to such by his/her cosignature. RADHA PERRY DO Oct 26, 2018 14:49
[2018-10-26 18:00] VITALS: BP 130/86
[2018-10-26] MEDS: traZODone 50 MG TAB PO PRN (22:20)
[2018-10-27 06:47] VITALS: BP 107/54
[2018-10-27] MEDS: SERTRALINE HCL 25 MG TABLET PO SCH (09:17)
[2018-10-27] MEDS: MULTIVITAMINS/MINERALS THERAP 1 TAB PO SCH (09:17)
[2018-10-27] MEDS: GABAPENTIN 100 MG CAP PO SCH ×3 (09:17→23:57)
[2018-10-27] MEDS: FOLIC ACID 1 MG TAB PO SCH (09:17)
[2018-10-27] MEDS: NICOTINE 14 MG/24 HR TRANSDERMAL TD SCH (09:18)
[2018-10-27] MEDS: PROPRANOLOL 10 MG TAB PO PRN (15:14)
[2018-10-27] MEDS ORDERED: hydrOXYzine 50 MG TAB PO ONE (16:30)
[2018-10-27 18:00] VITALS: BP 126/74
[2018-10-28 06:47] VITALS: BP 98/54
[2018-10-28] MEDS: GABAPENTIN 100 MG CAP PO SCH ×3 (09:55→22:08)
[2018-10-28] MEDS: MULTIVITAMINS/MINERALS THERAP 1 TAB PO SCH (09:56)
[2018-10-28] MEDS: FOLIC ACID 1 MG TAB PO SCH (09:56)
[2018-10-28] MEDS: SERTRALINE HCL 25 MG TABLET PO SCH (09:56)
[2018-10-28] MEDS: NICOTINE 14 MG/24 HR TRANSDERMAL TD SCH (09:57)
[2018-10-28] MEDS: PROPRANOLOL 10 MG TAB PO PRN (16:43)
[2018-10-28 18:00] VITALS: BP 138/97
[2018-10-28] MEDS: hydrOXYzine 50 MG TAB PO PRN (18:28)
[2018-10-28] MEDS: traZODone 50 MG TAB PO PRN ×2 (22:07)
[2018-10-29 06:40] VITALS: BP 138/73
[2018-10-29] MEDS: SERTRALINE HCL 25 MG TABLET PO SCH (08:51)
[2018-10-29] MEDS: FOLIC ACID 1 MG TAB PO SCH (08:51)
[2018-10-29] MEDS: NICOTINE 14 MG/24 HR TRANSDERMAL TD SCH (08:51)
[2018-10-29] MEDS: MULTIVITAMINS/MINERALS THERAP 1 TAB PO SCH (08:51)
[2018-10-29] MEDS: GABAPENTIN 100 MG CAP PO SCH ×3 (08:51→22:42)
--- NOTE | 2018-10-29 14:42 | IPNPDOC ---
Date Seen The patient was seen on 10/29/18. Progress Note CHIEF COMPLAINT: "I've been suicidal, they threw me in the barracks, they just don't care" HISTORY OF THE PRESENT ILLNESS: Patient is a 23 -year-old , male, who according to ED report: "Pt was brought to the ED by his due to SI with no plan. He also c/o increasing depression & anxiety. Pt was seen in the ED & discharged on 10/20/18. At that time, he was found by MP's in his car with a razor in his hand. He told ED staff that he was not suicidal at that time. Today he states that he lied & he really was suicidal that day. He continues to be suicidal today but without a plan. He also c/o panic attacks. He has had anxiety & depression for the past year, but it has become worse during the past six months. His main stressor is that he does not like being in the [employer]. His job makes him anxious & when he becomes anxious he tends to avoid the trigger. Therefore, he has been late to formation several times & recently received an Article 15 & is currently on extra duty." VITAL SIGNS: See below. NEW TEST RESULTS: See below CURRENT MEDICATIONS: See below. MENTAL STATUS EXAMINATION: General Appearance: well groomed, appears stated age, hospital scubs/clothing Build: average Demeanor: psychomotor agitation Eye Contact: avoidant, poor Activity: laying on bed, sprawled on couch Behavior: over dramatic Speech: impoverished, non spontaneous,short, brief, shallow responses, low in volume Mood: depressed / anxious Affect: constricted, flat, labile, anxious Thought Process: logical/linear, associative Thought Content (Delusions): none reported Thought Content (Other): ideas of reference Thought Content (Aggressive): none reported Perception (Hallucinations): none reported Perception (Other): none reported Cognition (Impairment of): none reported Cognition(Intelligence Est.): average Oriented: Awake, Alert, Oriented times three Insight: poor Judgment: Poor Psychosis: Denies DIAGNOSIS 1. Major Depressive Disorder, recurrent 2. Panic attacks, r/O Panic disorder 3. Borderline personality ASSESSMENT: Patient was interviewed today. He denies any suicidal ideations, denies homicidal ideations, is not psychotic. He does complain of the first half of his days being worse and having a hard time getting out of bed. He says that after that his days gradually get better. He has recently enjoyed time with his girlfriend when she visited and watching the football game. MANAGEMENT PLAN: Will continue with the same treatment plan VS, I&O, 24H, Fishbone Vital Signs/I&O Vital Signs Date Time Temp Pulse Resp B/P (MAP) Pulse Ox O2 Delivery O2 Flow Rate FiO2 10/29/18 06:40 97.8 60 14 138/73 (94) 10/28/18 18:00 99 GME ATTESTATION GME ATTESTATION My faculty preceptor for this patient encounter was physically present during the encounter and was fully available. All aspects of the patient interview, examination, medical decision making process, and medical care plan development were reviewed and approved by the faculty preceptor. The faculty preceptor is aware and concurs with the plan as stated in the body of this note and will attest to such by his/her cosignature. GERARD TIERNEY S-III Oct 29, 2018 14:42
[2018-10-29 15:19] VITALS: BP 126/66
[2018-10-29] MEDS: PROPRANOLOL 10 MG TAB PO PRN (15:19)
[2018-10-29] MEDS: hydrOXYzine 50 MG TAB PO PRN (16:50)
[2018-10-29 18:00] VITALS: BP 121/61
[2018-10-29] MEDS ORDERED: PROP10TAB PO (22:26)
[2018-10-29] MEDS ORDERED: TRAZO50TA PO (22:26)
[2018-10-29] MEDS ORDERED: NICO14PA TD (22:26)
[2018-10-29] MEDS ORDERED: SERT25TA PO (22:26)
[2018-10-29] MEDS ORDERED: ARIP5TA PO (22:26)
[2018-10-29] MEDS ORDERED: GABA-1171 PO (22:26)
[2018-10-29] MEDS ORDERED: HYDRO50TAB PO (22:26)
[2018-10-29] MEDS: traZODone 50 MG TAB PO PRN (22:42)
[2018-10-30 06:28] VITALS: BP 97/53
[2018-10-30] MEDS: SERTRALINE HCL 25 MG TABLET PO SCH (09:00)
[2018-10-30] MEDS: FOLIC ACID 1 MG TAB PO SCH (09:00)
[2018-10-30] MEDS: MULTIVITAMINS/MINERALS THERAP 1 TAB PO SCH (09:00)
[2018-10-30] MEDS: GABAPENTIN 100 MG CAP PO SCH (09:00)
[2018-10-30] MEDS: NICOTINE 14 MG/24 HR TRANSDERMAL TD SCH (09:01)
--- NOTE | 2018-10-30 17:43 | MHIPNPDOC ---
[facility] Progress Note Progress Note DATE OF SERVICE: 10/30/18 CHIEF COMPLAINT: "I've been suicidal, they threw me in the barracks, they just don't care" HISTORY OF THE PRESENT ILLNESS: Patient is a 23 -year-old , male, who according to ED report: "Pt was brought to the ED by his due to SI with no plan. He also c/o increasing depression & anxiety. Pt was seen in the ED & discharged on 10/20/18. At that time, he was found by MP's in his car with a razor in his hand. He told ED staff that he was not suicidal at that time. Today he states that he lied & he really was suicidal that day. He continues to be suicidal today but without a plan. He also c/o panic attacks. He has had anxiety & depression for the past year, but it has become worse during the past six months. His main stressor is that he does not like being in the [employer]. His job makes him anxious & when he becomes anxious he tends to avoid the trigger. Therefore, he has been late to formation several times & recently received an Article 15 & is currently on extra duty." VITAL SIGNS: See below. NEW TEST RESULTS: See below CURRENT MEDICATIONS: See below. MENTAL STATUS EXAMINATION: General Appearance: well groomed, appears stated age, hospital scubs/clothing Build: average Demeanor: psychomotor agitation Eye Contact: average, much improved Activity: sitting up straight, engaged in conversation Behavior: over dramatic Speech: logical, normal tone, normal volume Mood: average Affect: less constricted, labile Thought Process: logical/linear, associative Thought Content (Delusions): none reported Thought Content (Other): ideas of reference Thought Content (Aggressive): none reported Perception (Hallucinations): none reported Perception (Other): none reported Cognition (Impairment of): none reported Cognition(Intelligence Est.): average Oriented: Awake, Alert, Oriented times three Insight: Improved Judgment: Improved Psychosis: Denies DIAGNOSIS 1. Major Depressive Disorder, recurrent 2. Panic attacks, r/O Panic disorder 3. Borderline personality ASSESSMENT: Patient was interviewed today. He denies any suicidal ideations, denies homicidal ideations, is not psychotic. He says that he is doing better and "excited" to be being discharged. He did say that he feels like this is a never ending absentee-[place]. 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 He is also concerned that once he returns back to post that behavioral health will take away his medications. He says he has learned mechanisms to cope with anxiety and once he is discharged is going to start working out and taking care of his body. MANAGEMENT PLAN: Will be discharged today. Vital Signs Vital Signs Date Time Temp Pulse Resp B/P (MAP) Pulse Ox O2 Delivery O2 Flow Rate FiO2 10/30/18 06:28 98.0 59 12 97/53 (68) 10/28/18 18:00 99 Current Medications Current Medications Acetaminophen (Tylenol Tab) 650 mg Q6HP PRN PO HEADACHE or DISCOMFORT; Start 10/22/18 at 13:00; Stop 10/30/18 at 10:54; Status DC Al Hydrox/Mg Hydrox/Simethicone (Mylanta) 30 ml Q4HP PRN PO HEARTBURN/INDIGESTION; Start 10/22/18 at 13:00; Stop 10/30/18 at 10:54; Status D C Aripiprazole (AbiLIFY) 2.5 mg QHS PO Last administered on 10/29/18at 22:43; Start 10/23/18 at 21:00; Stop 10/30/18 at 10:55; Status DC Folic Acid (Folic Acid) 1 mg DAILY PO Last administered on 10/30/18at 09:00; Start 10/22/18 at 09:00; Stop 10/30/18 at 10:54; Status DC Gabapentin (Neurontin) 200 mg TID PO Last administered on 10/30/18at 09:00; Start 10/23/18 at 16:00; Stop 10/30/18 at 10:55; Status DC Home Med (Med Rec Complete!) ASDIRECTED XX ; Start 10/22/18 at 15:15; Stop 10/22/18 at 15:15; Status DC Hydroxyzine HCl (Atarax) 50 mg Q6HP PRN PO ANXIETY/AGITATION Last administered on 10/29/18at 16:50; Start 10/28/18 at 18:30; Stop 10/30/18 at 10:55; Status DC Lorazepam (Ativan) 2 mg ASDIRECTED PRN PO SEE PROTOCOL; Start 10/22/18 at 20:45; Status Cancel Lorazepam (Ativan) 2 mg STAT STAT PO Last administered on 10/23/18at 11:28; Start 10/23/18 at 11:24; Stop 10/23/18 at 11:26; Status DC Magnesium Hydroxide (Milk Of Magnesia) 30 ml DAILYPRN PRN PO CONSTIPATION; Start 10/22/18 at 13:00; Stop 10/30/18 at 10:54; Status DC Multivitamins (Theragram-M) 1 tab DAILY PO Last administered on 10/30/18at 09:00; Start 10/22/18 at 09:00; Stop 10/30/18 at 10:55; Status DC Nicotine (Nicoderm Cq 14mg) 1 patch DAILY TD Last administered on 10/30/18at 09:01; Start 10/22/18 at 09:00; Stop 10/30/18 at 10:54; Status DC Nicotine (Nicoderm Cq 14mg) 1 patch DAILY TD ; Start 10/23/18 at 09:00; Stop 10/23/18 at 09:00; Status DC Propranolol HCl (Inderal) 10 mg TID PRN PO ANXIETY/AGITATION Last administered on 10/29/18at 15:19; Start 10/23/18 at 12:30; Stop 10/30/18 at 10:55; Status DC Sertraline HCl (Zoloft) 50 mg QAM PO Last administered on 10/25/18at 09:47; Sta rt 10/23/18 at 09:00; Stop 10/25/18 at 19:20; Status DC Sertraline HCl (Zoloft) 75 mg QAM PO Last administered on 10/30/18at 09:00; Start 10/26/18 at 09:00; Stop 10/30/18 at 10:55; Status DC Thiamine HCl (Thiamine HCl) 100 mg BID PO Last administered on 10/25/18at 09:47; Start 10/22/18 at 21:00; Stop 10/25/18 at 09:01; Status DC Trazodone HCl (Desyrel) 50 mg QHSP PRN PO INSOMNIA Last administered on 10/29/18at 22:42; Start 1/28/19 at 13:00; Stop 10/30/18 at 10:54; Status DC Allergies Coded Allergies: No Known Allergies (Unverified , 03/29/18) GME ATTESTATION GME ATTESTATION My faculty preceptor for this patient encounter was physically present during the encounter and was fully available. All aspects of the patient interview, examination, medical decision making process, and medical care plan development were reviewed and approved by the faculty preceptor. The faculty preceptor is aware and concurs with the plan as stated in the body of this note and will attest to such by his/her cosignature. GERARD TIERNEY OMS-III Oct 30, 2018 17:43
--- NOTE | 2018-10-30 22:07 | MHDSPDOC ---
[facility] Discharge Summary Discharge Summary DATE OF ADMISSION: Oct 22, 2018 at 12:58 DATE OF DISCHARGE: Oct 30, 2018 at 10:50 DISCHARGE DIAGNOSES: 1. Major Depressive Disorder, recurrent 2. Panic attacks, r/O Panic disorder 3. Borderline personality REASON FOR ADMISSION: CHIEF COMPLAINT: "I've been suicidal, they threw me in the barracks, they just don't care" HISTORY OF THE PRESENT ILLNESS: Patient is a 23 -year-old , male, who according to ED report: "Pt was brought to the ED by his due to SI with no plan. He also c/o increasing depression & anxiety. Pt was seen in the ED & discharged on 10/20/18. At that time, he was found by MP's in his car with a razor in his hand. He told ED staff that he was not suicidal at that time. Today he states that he lied & he really was suicidal that day. He continues to be suicidal today but without a plan. He also c/o panic attacks. He has had anxiety & depression for the past year, but it has become worse during the past six months. His main stressor is that he does not like being in the [employer]. His job makes him anxious & when he becomes anxious he tends to avoid the trigger. Therefore, he has been late to formation several times & recently received an Article 15 & is currently on extra duty. CONSULTANTS INVOLVED: None TREATMENT AND PROGRESS ON THE UNIT : When the patient was initially evaluated, he was laying in bed and he mentioned that he was very unhappy and that he had been very depressed and had panic attacks. As he continued with his narrative he started working himself up, getting more and more agitated, started pulling his shirt over his head and eventually laid down in bed again and said he didn't want to talk anymore he was going to fall asleep. It is very difficult for a person experiencing a panic attack to be able to go to sleep. The next day the patient remained in bed once again, refusing to become active in the unit and participate in groups. That very same night when his girlfriend came to see him, he seemed to be very interested in the medications that he was taking and he seemed to be invested in his treatment. Day he had exactly the same presentation that he had before, he was not getting up from bed and not participating. During the last 2 days he was seen interacting with peers in the lounge, choking and talking to them, however when he met with staff members he said he was still feeling depressed. This is the way that he presented to me, he said he still was depressed but he was not suicidal, not homicidal and not psychotic. HOSPITAL COURSE: As above DISCHARGE ASSESSMENT: Patient was not homicidal, not suicidal and not psychotic at the time of his discharge. 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 MENTAL STATUS EXAMINATION ON DISCHARGE: General Appearance: well groomed, appears stated age, hospital scubs/clothing Build: average Demeanor: psychomotor agitation Eye Contact: average, much improved Activity: sitting up straight, engaged in conversation Behavior: over dramatic Speech: logical, normal tone, normal volume Mood: average Affect: less constricted, labile Thought Process: logical/linear, associative Thought Content (Delusions): none reported Thought Content (Other): ideas of reference Thought Content (Aggressive): none reported Perception (Hallucinations): none reported Perception (Other): none reported Cognition (Impairment of): none reported Cognition(Intelligence Est.): average Oriented: Awake, Alert, Oriented times three Insight: Improved Judgment: Improved Psychosis: Denies DIAGNOSIS 1. Major Depressive Disorder, recurrent 2. Panic attacks, r/O Panic disorder 3. Borderline personality MEDICATIONS ON DISCHARGE: Scheduled Aripiprazole (Aripiprazole) 5 Mg Tab, 2.5 MG PO QHS for mood, #4 The tablet should be split in half and take one half every night Gabapentin (Gabapentin) 100 Mg Cap, 200 MG PO TID for anxiety, #21 Nicotine (Nicotine Transdermal Syst) 14 Mg/24 Hr Dis, 1 PATCH TD DAILY for nicotine withdrawals, #7 Sertraline Hcl (Sertraline HCl) 25 Mg Tab, 75 MG PO QAM for depression, #21 Scheduled PRN Hydroxyzine HCl (Hydroxyzine HCl) 50 Mg Tab, 50 MG PO Q6HP PRN for ANXIETY/AGITATION, #28 Ibuprofen (Ibuprofen) 800 Mg Tab, 800 MG PO TID PRN for PAIN, (Reported) Propranolol HCl (Propranolol HCl) 10 Mg Tab, 10 MG PO TID PRN for ANXIETY/AGITATION, #21 Trazodone HCl (Trazodone HCl) 50 Mg Tab, 50 MG PO QHSP PRN for INSOMNIA, #7 PLAN/FOLLOWUP ARRANGEMENTS: Follow Up Care Education Label * Medical * Medical Follow Up [facility] * Established With This Provider Yes * Therapist SHIMA * Date Nov 05, 2018 * Time 09:20 * Address of Clinic or Practice [address] * The amount of time spent in the coordination of care for this patient was approximately 30 minutes. Vital Signs/I&Os Vital Signs Date Time Temp Pulse Resp B/P (MAP) Pulse Ox O2 Delivery O2 Flow Rate FiO2 10/30/18 06:28 98.0 59 12 97/53 (68) 10/28/18 18:00 99 Medications Scheduled Aripiprazole (Aripiprazole) 5 Mg Tab, 2.5 MG PO QHS for mood, #4 The tablet should be split in half and take one half every night Gabapentin (Gabapentin) 100 Mg Cap, 200 MG PO TID for anxiety, #21 Nicotine (Nicotine Transdermal Syst) 14 Mg/24 Hr Dis, 1 PATCH TD DAILY for nicotine withdrawals, #7 Sertraline Hcl (Sertraline HCl) 25 Mg Tab, 75 MG PO QAM for depression, #21 Scheduled PRN Hydroxyzine HCl (Hydroxyzine HCl) 50 Mg Tab, 50 MG PO Q6HP PRN for ANXIETY/AGITATION, #28 Ibuprofen (Ibuprofen) 800 Mg Tab, 800 MG PO TID PRN for PAIN, (Reported) Propranolol HCl (Propranolol HCl) 10 Mg Tab, 10 MG PO TID PRN for ANXIETY/AGITATION, #21 Trazodone HCl (Trazodone HCl) 50 Mg Tab, 50 MG PO QHSP PRN for INSOMNIA, #7 Allergies Coded Allergies: No Known Allergies (Unverified , 03/29/18) MERLENE YIN MD Oct 30, 2018 22:05
== END 2018-10-30 10:50 | disposition home or self-care (01) | DRG 885 ==
LOC: M ED 10:21 → M ED INP 12:58 → M PSY 15:14
PROVIDERS: ADMIT Psychiatry & Neurology Psychiatry; ATTEND Psychiatry & Neurology Psychiatry
DX: F33.9 Major depressive disorder, recurrent, unspecified (principal); R45.851 Suicidal ideations; F60.3 Borderline personality disorder; F41.0 Panic disorder [episodic paroxysmal anxiety]; Z79.899 Other long term (current) drug therapy

== ENCOUNTER 2018-12-12 20:49 | Emergency (ER) | payer OTHER ==
[~2018-12-12 20:49] MED LIST changes: +ARIP5TA PO; +GABA-1171 PO; +HYDRO50TAB PO; +IBUP80TA PO; +NICO14PA TD; +PROP10TAB PO; +SERT25TA PO
[2018-12-12 21:25] VITALS: BP 124/77
[2018-12-12 21:45] LABS: HEMATOCRIT 43.4 % (42.0-52.0); HEMOGLOBIN 14.4 g/dl (13.5-17.5); MEAN CORPUSCULAR HEMOGLOBIN 30.3 pg (27.0-33.0); MEAN CORPUSCULAR HGB CONC 33.2 g/dl (32.0-36.5); MEAN CORPUSCULAR VOLUME 91.4 fl (80.0-96.0); PLATELET COUNT, AUTOMATED 245 10^3/uL (150-450); RED BLOOD COUNT 4.75 10^6/uL (4.30-6.10); WHITE BLOOD COUNT 8.7 10^3/uL (4.0-10.0)
[2018-12-12 22:10] LABS: AMPHETAMINES LEVEL URINE NEGATIVE (NEGATIVE); BARBITURATES URINE NEGATIVE (NEGATIVE); BENZODIAZEPINES URINE NEGATIVE (NEGATIVE); CANNABINOIDS URINE NEGATIVE (NEGATIVE); COCAINE METABOLITE URINE NEGATIVE (NEGATIVE); METHADONE URINE NEGATIVE (NEGATIVE); OPIATES URINE NEGATIVE (NEGATIVE); PHENCYCLIDINE URINE NEGATIVE (NEGATIVE)
[2018-12-12 22:26] LABS: ACETAMINOPHEN LEVEL < 2.0 UG/ML (10.0-30.0); ALBUMIN 4.4 GM/DL (3.2-5.2); ALT/SGPT 62 U/L (12-78); BILIRUBIN,DIRECT 0.2 MG/DL (0.0-0.2); BILIRUBIN,TOTAL 0.7 MG/DL (0.2-1.0); BLOOD UREA NITROGEN 9 MG/DL (7-18); CALCIUM LEVEL 8.7 MG/DL (8.5-10.1); CARBON DIOXIDE LEVEL 28 MEQ/L (21-32); CHLORIDE LEVEL 103 MEQ/L (98-107); CREATININE FOR GFR 1.01 MG/DL (0.70-1.30); ETHYL ALCOHOL (ETHANOL) 0.086 % (0.000-0.010); GLOMERULAR FILTRATION RATE > 60.0 (>60); GLUCOSE, FASTING 88 MG/DL (70-100); POTASSIUM SERUM 3.6 MEQ/L (3.5-5.1); SALICYLATE LEVEL < 1.7 MG/DL (5.0-30.0); SODIUM LEVEL 139 MEQ/L (136-145); TOTAL PROTEIN 8.1 GM/DL (6.4-8.2)
== END 2018-12-12 23:17 | disposition home or self-care (01) ==
LOC: M ED 20:49
DX: F10.229 Alcohol dependence with intoxication, unspecified (principal); Y90.0 Blood alcohol level of less than 20 mg/100 ml; Z79.899 Other long term (current) drug therapy
CPT/HCPCS: 36415; 80048; 80076; 80307; 84443; 85027; 99284; G0480

== ENCOUNTER 2018-12-14 08:05 | Inpatient (IN) | payer OTHER ==
[~2018-12-14] VITALS: Ht 185.4 cm; Wt 84.5 kg
[2018-12-14 10:02] LABS: HEMATOCRIT 46.1 % (42.0-52.0); HEMOGLOBIN 15.2 g/dl (13.5-17.5); MEAN CORPUSCULAR HEMOGLOBIN 29.9 pg (27.0-33.0); MEAN CORPUSCULAR VOLUME 90.7 fl (80.0-96.0); PLATELET COUNT, AUTOMATED 244 10^3/uL (150-450); RED BLOOD COUNT 5.08 10^6/uL (4.30-6.10); WHITE BLOOD COUNT 6.5 10^3/uL (4.0-10.0)
[2018-12-14 10:37] LABS: ACETAMINOPHEN LEVEL < 2.0 UG/ML (10.0-30.0); ALBUMIN 4.4 GM/DL (3.2-5.2); ALT/SGPT 58 U/L (12-78); BILIRUBIN,DIRECT 0.2 MG/DL (0.0-0.2); BILIRUBIN,TOTAL 1.2 MG/DL (0.2-1.0); BLOOD UREA NITROGEN 12 MG/DL (7-18); CALCIUM LEVEL 9.1 MG/DL (8.5-10.1); CARBON DIOXIDE LEVEL 29 MEQ/L (21-32); CHLORIDE LEVEL 104 MEQ/L (98-107); ETHYL ALCOHOL (ETHANOL) < 0.003 % (0.000-0.010); GLOMERULAR FILTRATION RATE > 60.0 (>60); GLUCOSE, FASTING 104 MG/DL (70-100); POTASSIUM SERUM 4.2 MEQ/L (3.5-5.1); SALICYLATE LEVEL < 1.7 MG/DL (5.0-30.0); SODIUM LEVEL 141 MEQ/L (136-145); TOTAL PROTEIN 8.2 GM/DL (6.4-8.2)
[2018-12-14 10:37] LABS: AMPHETAMINES LEVEL URINE NEGATIVE (NEGATIVE); BARBITURATES URINE NEGATIVE (NEGATIVE); BENZODIAZEPINES URINE NEGATIVE (NEGATIVE); CANNABINOIDS URINE POSITIVE (NEGATIVE); COCAINE METABOLITE URINE NEGATIVE (NEGATIVE); METHADONE URINE NEGATIVE (NEGATIVE); OPIATES URINE NEGATIVE (NEGATIVE); PHENCYCLIDINE URINE NEGATIVE (NEGATIVE)
[2018-12-14] MEDS ORDERED: MAALOX 30 ML SUSP *UDC PO PRN (14:00)
[2018-12-14] MEDS ORDERED: MOM 30ML SUSPENSION UDC PO PRN (14:00)
[2018-12-14] MEDS ORDERED: ACETAMINOPHEN TAB 650MG DOSE (2X325MG) PO PRN (14:00)
[2018-12-14] MEDS ORDERED: OLANZapine ORAL DISINTEGRATING TAB 5MG PO PRN (14:00)
[2018-12-14] MEDS ORDERED: PROPRANOLOL 10 MG TAB PO PRN (14:15)
[2018-12-14 15:55] VITALS: BP 144/88
[2018-12-14] MEDS: GABAPENTIN 100 MG CAP PO SCH ×2 (16:00→21:00)
[2018-12-15 06:16] VITALS: BP 106/58
[2018-12-15] MEDS: GABAPENTIN 100 MG CAP PO SCH ×3 (09:00→21:59)
[2018-12-15] MEDS: SERTRALINE HCL 25 MG TABLET PO SCH (09:00)
[2018-12-15 18:00] VITALS: BP 112/63
[2018-12-15] MEDS: hydrOXYzine 50 MG TAB PO PRN (21:59)
[2018-12-15] MEDS: traZODone 50 MG TAB PO PRN (21:59)
[2018-12-15 22:00] VITALS: BP 122/78
[2018-12-16 06:34] VITALS: BP 109/54
[2018-12-16] MEDS: SERTRALINE HCL 25 MG TABLET PO SCH (09:00)
[2018-12-16] MEDS: GABAPENTIN 100 MG CAP PO SCH ×3 (09:00→21:01)
--- NOTE | 2018-12-16 14:27 | MHHPE ---
DATE OF ADMISSION: 06/17/2019 CHIEF COMPLAINT: He feels anxious. SUBJECTIVE: He is 23 years old. He is . He is active duty at [employer]. This is one of several hospitalizations. He was last here just over a month ago, early October 2018, was seen by Dr. Redding, please see the discharge summary for details related to that admission, which apparently was his third admission. He is on Zoloft at 75 mg daily, gabapentin 200 mg three times a day, Abilify 2.5 mg at night. He was discharged on those medicines. He was seen at [facility]. He was brought into the hospital a couple of days ago as he had gone out into the [place], says had driven out, was feeling stressed, suicidal, says had been drinking, was brought to the hospital, and was discharged. He was brought back yesterday, as he was found in the stairwell of a building at work, was crying, indicating he wanted to end his life. 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 He says he does not want to hurt anyone in particular, but generally chain of command, also mentioned "in a mass shooting type of situation." He says being in the he has access to guns, and that has worried him. He also says he does not think that he should be discharged in a short space of time, because he feels that the cycle repeats itself, and that he requires longer term care. He acknowledges anxieties, says also has anxiety, but that he plans to focus on himself, as his is going to stay at her mother's place. Records suggest his care was recently impounded, and he does not have transportation. Apparently, he has been seen at [employer], gets his medications there, but does not go to therapy, as he does not feel that it helps him. 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 MEDICATIONS: Currently include: - Abilify at 2.5 mg at night - gabapentin 200 mg three times a day - hydroxyzine 50 mg every six hours as needed for anxiety - propranolol 10 mg three times a day as needed for anxiety and agitation - Zoloft 75 mg daily - trazodone 50 mg at bedtime as needed - ibuprofen 800 mg three times a day as needed for pain PAST PSYCHIATRIC HISTORY: Please refer to the previous summaries, was recently discharged early October 2018. SUBSTANCE ABUSE HISTORY: He has a history of misusing alcohol, cannabis. SOCIAL HISTORY: He is . He and his have been together for over a year. He says he has family in [place]. MENTAL STATUS EXAMINATION: He is neat, initially quite guarded, poor eye contact, had the blanket around him, as a sheet, with him peering from on top of it, and looked anxious, had a hard time engaging, but then did. No psychomotor retardation and he displayed speech that was spontaneous, coherent, with a broad affect, appeared anxious, appeared somewhat intense, has suicidal thoughts. No firm plans. Vague on homicidal ideas, but does not think that he plans to hurt anyone here. No evidence of any psychosis. Does not appear to be internally preoccupied. No delusions elicited. He is alert. No fluctuation of consciousness. He is oriented to time, place, and person. Intellect average. Insight and judgment are quite compromised. ASSESSMENT: 1. Major depressive disorder, recurrent. 2. Panic disorder, rule out generalized anxiety disorder. The possibility of a cluster B personality disorder (previous admission contained a diagnosis of borderline personality disorder) needs to be considered, given his patterns of behavior. The other possibility to consider is bipolar disorder, a personality disorder is not mutually exclusive with that, given fluctuations in terms of moods, irritability, and poor judgment. PLAN: He is admitted to the inpatient psychiatry unit and placed on relative precautions. We will look at obtaining collateral information. He will receive a medicine consult if indicated. We will continue with aripiprazole, but I would suggest increasing the dose to 5 mg at night empirically, to help with irritability and mood stability. Sertraline is to continue at 75 mg daily for now, but we will consider increasing it to 100 mg daily, though if he does have bipolar disorder, that may not be helpful, increasing the sertraline. The gabapentin is to continue at 200 mg three times a day, propranolol 10 mg three times a day as needed for anxiety, and hydroxyzine as needed as well. It should be noted, he has refused taking the sertraline, the aripiprazole, and the gabapentin so far. We will look into persuading him to change his stance on that. Further recommendations will be made depending on the clinical picture. I would also suggest considering the patient for long-term care, given his difficulties maintaining himself in the community. VITAL SIGNS: Blood pressure 106/58, pulse 64, temperature 97.8. Investigations showed a complete blood count within normal limits and the metabolic profile was essentially within normal limits except for glucose 104. Urine toxicology was positive for cannabinoids. The assessment took 45 minutes.
[2018-12-16 18:00] VITALS: BP 113/56
[2018-12-16] MEDS: traZODone 50 MG TAB PO PRN (21:01)
[2018-12-17 06:00] VITALS: BP 108/66
--- NOTE | 2018-12-17 08:03 | MHIPN ---
DATE: 12/16/2018 CHIEF COMPLAINT: Feels depressed. SUBJECTIVE: Seen for followup, in the presence of staff. Says has poor motivation, and is feeling depressed, has not wanted to do things. Says sleep was broken last night. Says was visited by his , and that things went relatively okay. MENTAL STATUS EXAM: He is lying in bed, somewhat cooperative, more withdrawn, no agitation, no psychomotor retardation. Affect restricted in range. Vague on suicidal thoughts. No firm plans, no homicidal ideas or intents. No evidence of any psychosis. Cognition grossly intact. Judgment, insight are compromised. ASSESSMENT: 1. Major depressive disorder, recurrent. 2. Panic disorder. Appears depressed, there is the possibility of bipolar disorder. Personality-related factors may also be playing a role, but it is unclear. PLAN: He is to continue with Abilify 5 mg at night. He has declined the Sertraline, says has had sexual side effects using it in the past, and does not wish to use that. In view of that, I would suggest discontinuing it and reassessing the requirement for an antidepressant. He is to be encouraged to get out of bed, and engage in activities. We will monitor for safety, and he will see the treatment team, as well as the assigned psychiatrist tomorrow. Further recommendations will be made depending on the clinical picture. VITAL SIGNS: Blood pressure 109/54, pulse 56, temperature 98.
[2018-12-17] MEDS: buPROPion **XL** TABLET 150MG (WELLBUTRIN XL) PO SCH (09:00)
[2018-12-17] MEDS: GABAPENTIN 100 MG CAP PO SCH ×3 (09:05→22:09)
--- NOTE | 2018-12-17 11:44 | HPE ---
DATE OF ADMISSION: 12/14/2018 HISTORY OF PRESENT ILLNESS (HPI): Please refer to the psychiatric history and evaluation for further details on this admission. This examination and history is intended for medical issues, which may need treatment, followup or consultation on this 23-year-old male. ALLERGIES: NO KNOWN ALLERGIES. PRIMARY CARE PROVIDER: [facility] PAST MEDICAL HISTORY: Anxiety, panic attacks, depression, history of suicidal ideation. PAST SURGICAL HISTORY: Repair of right arm fracture as a child. SOCIAL HISTORY: He lives in [place]. He is but is currently being restricted to the [employer]. Tobacco use: None. Ethyl alcohol (EtOH): He states he drinks 2-3 beers and 4-5 shots of liquor daily. Illicit drug use: Marijuana. IV drug use: None. FAMILY HISTORY: Mother is alive and well. Father is alive, diabetes, prostate cancer. Siblings: One brother alive and well. LABORATORY STUDIES: CBC was normal. Electrolytes were normal. Nonfasting glucose was 104. Calcium 9.1. Total bilirubin 1.2. AST and ALT were all normal. TSH was 3.100. Urine for toxicology was positive for cannabinoids. HOME MEDICATIONS: - Abilify 2.5 mg by mouth nightly - gabapentin 200 mg by mouth three times a day - propranolol 10 mg by mouth three times a day as needed, anxiety, agitation - hydroxyzine 50 mg by mouth every 6 hours as needed, anxiety, agitation - trazodone 50 mg by mouth nightly as needed, insomnia - sertraline 75 mg by mouth every morning 11 systems review was done, was unremarkable. Patient had no complaints. PHYSICAL EXAMINATION: 23-year-old, cooperative male, in no acute distress. Height 73 inches. Weight 84.5 kg. Body mass index (BMI) 24.6. Blood pressure 122/78. Pulse 58. Respirations 18. Temperature 98. Oxygen saturation 98% on room air. Patient is alert and oriented times three. Pupils equal and reactive to light. Extraocular movements (EOMS) intact. Cornea and sclerae clear. Conjunctiva is normal. No facial asymmetry. Pharynx, tongue and gums pink and moist. Tongue is midline. Neck is supple, without lymphadenopathy. No thyromegaly. No goiter. Carotids 2+ without bruits. Chest clear to auscultation, without wheeze or retraction. Heart is regular. Abdomen is benign. Bowel sounds are positive. Genitourinary ()/rectal not done. Extremities show equal strength, full range of motion. No cyanosis, clubbing or edema. Peripheral pulse equal and palpable bilaterally. Skin is warm and dry. IMPRESSION/PLAN: 1. Psychiatric: Plan per psychiatry. 2. No acute medical issues.
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
[2018-12-17 18:00] VITALS: BP 117/68
[2018-12-17] MEDS: traZODone 50 MG TAB PO PRN (22:10)
[2018-12-18 06:49] VITALS: BP 90/52
[2018-12-18] MEDS: GABAPENTIN 100 MG CAP PO SCH ×3 (09:58→21:59)
[2018-12-18] MEDS: buPROPion **XL** TABLET 150MG (WELLBUTRIN XL) PO SCH (10:19)
[2018-12-18] MEDS: NICOTINE 21MG/24HR 1 EA TRANSDERMAL TD SCH (11:27)
--- NOTE | 2018-12-18 13:53 | MHIPNPDOC ---
[facility] Progress Note Progress Note DATE OF SERVICE: 12/18/18 HISTORY: See HPI. Interval History: Patient reports improvement in mood since making medication changes, starting wellbutrin 150 mg PO XL. Denies any side effects of increased agitation or aggression. States his mood is more "relaxed" He did take all his PRN anxiety medications, propranolol was discontinued since last BP this morning was 90/52. During interview denied light headedness, vision changes, chest pain and appeared calm and a/o x4. Has been attending groups. Denies SI/HI/AVH/gwen. Reports thoughts of violence and self-harm but denies he would go through with these thoughts, says the thoughts scare him. Denies compulsions. Says his mood can decrease when left alone in his room., because he feels alone considering his has left to [place]. Overall reports increased energy and says this is the first monring he has waken up at 9:30 am. Denies side effects of medications. VITAL SIGNS: See below. NEW TEST RESULTS: None CURRENT MEDICATIONS: See below. MENTAL STATUS EXAMINATION: Patient is a 23 year old male, who is sitting in a chair in casual clothing, glasses, fair hygiene, cooperative, pleasant. Speech: Is logical, linear Language skills are Thought processes including: linear, logical Thought content: Reports he is unstable. Abstract reasoning, and computation: intact. Description of associations:intact Description of abnormal or psychotic thoughts: Denies Judgment: poor Insight: improving Orientation: x4 Recent and remote memory: intact Attention span and concentration: good Language: uzbek Fund of knowledge: good Mood: "relaxed" Affect: dysthymic, flat, mood-incongruent, does smile. DIAGNOSES: 1. Major Depressive Disorder with anxious distress, recurrent, severe 2. Panic disorder 2. Cannabis use disorder ASSESSMENT: Patient is a 23 y/o male with 4 admissions to inpatient mental health. Reports depression and anxiety with recurring panic attacks. Per [facility] he has an unspecified personality disorder and narcissistic traits. He denies any past suicide attempts but reports chronic SI/HI. Reports he wants to be chaptered out of the and to return home with his . Agrees to medication changes. Today reports improved mood, but does endorse passive SI/HI. Denies active SI/HI. States medications have improved his energy, but thinks it may be "a placebo". MANAGEMENT PLAN: Increased abilify 5 mg PO QHS, continue wellbutrin XL 150 mg Po daily for mood/anxiety, continue gabapentin 200 mg PO TID for panic attacks, d/c PRN propanolol, PRN atarax for anxiety/panic attacks. Trazodone 50 mg PO QHs for sleep. Will monitor for SI/HI/depressed mood, anxiety , panic attacks, medication side effects. TIME SPENT: 50 minutes. Vital Signs Vital Signs Date Time Temp Pulse Resp B/P (MAP) Pulse Ox O2 Delivery O2 Flow Rate FiO2 12/18/18 06:49 98.1 54 12 90/52 (65) 12/17/18 08:33 Room Air 12/14/18 15:55 100 Current Medications Current Medications Acetaminophen (Tylenol Tab) 650 mg Q6HP PRN PO HEADACHE or DISCOMFORT; Start 12/14/18 at 14:00 Al Hydrox/Mg Hydrox/Simethicone (Mylanta) 30 ml Q4HP PRN PO HEARTBURN/INDIGESTION; Start 12/14/18 at 14:00 Aripiprazole (AbiLIFY) 2.5 mg QHS PO Last administered on 12/16/18at 21:01; Start 12/14/18 at 21:00; Stop 12/17/18 at 15:09; Status DC Aripiprazole (AbiLIFY) 5 mg QHS PO Last administered on 12/17/18at 22:09; Start 12/17/18 at 21:00 Bupropion HCl (Wellbutrin Xl) 150 mg DAILY PO Last administered on 12/18/18at 10:19; Start 12/17/18 at 09:00 Gabapentin (Neurontin) 200 mg TID PO Last administered on 12/18/18at 09:58; Start 12/14/18 at 16:00 Hydroxyzine HCl (Atarax) 50 mg Q6HP PRN PO ANXIETY/AGITATION Last administered on 12/15/18at 21:59; Start 12/14/18 at 14:15 Magnesium Hydroxide (Milk Of Magnesia) 30 ml DAILYPRN PRN PO CONSTIPATION; Start 12/14/18 at 14:00 Nicotine (Nicoderm Cq 21mg) 1 patch DAILY TD Last administered on 12/18/18at 11:27; Start 12/18/18 at 09:00 Olanzapine (ZyPREXA ZYDIS) 5 mg Q4HP PRN PO ANXIETY/AGGITATION Last administered on 12/15/18at 22:00; Start 12/14/18 at 14:00 Propranolol HCl (Inderal) 10 mg TIDP PRN PO ANXIETY/AGITATION Last administered on 12/15/18at 22:00; Start 12/14/18 at 14:15 Sertraline HCl (Zoloft) 75 mg DAILY PO ; Start 12/15/18 at 09:00; Stop 12/16/18 at 15:59; Status DC Trazodone HCl (Desyrel) 50 mg QHSP PRN PO INSOMNIA Last administered on 12/17/18at 22:10; Start 12/14/18 at 14:00 Allergies Coded Allergies: No Known Allergies (Unverified , 03/29/18) ANAIS RAMOS PGY-1 Dec 18, 2018 13:53
[2018-12-18 18:00] VITALS: BP 128/64
[2018-12-18] MEDS: traZODone 50 MG TAB PO PRN (21:59)
[2018-12-19] MEDS: hydrOXYzine 50 MG TAB PO PRN ×2 (00:14→12:26)
[2018-12-19 06:50] VITALS: BP 108/52
[2018-12-19] MEDS: buPROPion **XL** TABLET 150MG (WELLBUTRIN XL) PO SCH (08:46)
[2018-12-19] MEDS: GABAPENTIN 100 MG CAP PO SCH ×3 (08:46→21:45)
[2018-12-19] MEDS: NICOTINE 21MG/24HR 1 EA TRANSDERMAL TD SCH (08:47)
--- NOTE | 2018-12-19 12:25 | MHIPNPDOC ---
[facility] Progress Note Progress Note DATE OF SERVICE: 12/19/18 HISTORY: See HPI. Interval History: Was seen smiling and talking on the phone initially on approach. Reports command came in yesterday and that he was "stressed out" out by this. Reports last time he was here he did not take his medications due to sexual dysfunction. Says he needs to be on medications. Says again he got up today and that he feels energized and "can do stuff". Says his mood is "still suicidal" and that he wonders at times if life matters, but says he does not have the strength to try. Says the homicidal thoughts "come and go" and that he can spontaneously enter a rage. Denies manic symptoms or AVH/paranoia. VITAL SIGNS: See below. NEW TEST RESULTS: None CURRENT MEDICATIONS: See below. MENTAL STATUS EXAMINATION: Patient is a 23 year old male, who is sitting in a chair in casual clothing, glasses, fair hygiene, cooperative, pleasant. Speech: Is logical, linear Language skills are Thought processes including: linear, logical Thought content: Reports he is unstable. Abstract reasoning, and computation: intact. Description of associations:intact Description of abnormal or psychotic thoughts: Denies Judgment: poor Insight: improving Orientation: x4 Recent and remote memory: intact Attention span and concentration: good Language: vietnamese Fund of knowledge: good Mood: "better" Affect: dysthymic, blunted, mood-incongruent, does smile. DIAGNOSES: 1. Major Depressive Disorder with anxious distress, recurrent, severe 2. Panic disorder 3. Cannabis use disorder 4. Narcissistic traits ASSESSMENT: Patient is a 23 y/o male with 4 admissions to inpatient mental health. Reports depression and anxiety with recurring panic attacks. Per [facility] he has an unspecified personality disorder and narcissistic traits. He denies any past suicide attempts but reports chronic SI/HI. Reports he wants to be chaptered out of the and to return home with his . Agrees to medication changes. Today continues to report improved mood but has anxiety about returning to the and possibly going to long-term, but does endorse passive SI/HI. Denies active SI/HI. States medications have continued to improved his energy. Reports appetite is "there", sleep is poor despite trazodone use. Has been going to groups. MANAGEMENT PLAN: Continue abilify 5 mg PO QHS, continue wellbutrin XL 150 mg Po daily for mood/anxiety, continue gabapentin 200 mg PO TID for panic attacks, PRN atarax for anxiety/panic attacks. D/c Trazodone 50 mg PO QHs for sleep, low morning BP. Started mirtazapine 30 mg PO QHS for sleep. Will monitor for SI/HI/depressed mood, anxiety , panic attacks, medication side effects. TIME SPENT: 15 minutes. Vital Signs Vital Signs Date Time Temp Pulse Resp B/P (MAP) Pulse Ox O2 Delivery O2 Flow Rate FiO2 12/19/18 06:50 98.2 59 14 108/52 (70) 12/17/18 08:33 Room Air 12/14/18 15:55 100 Current Medications Current Medications Acetaminophen (Tylenol Tab) 650 mg Q6HP PRN PO HEADACHE or DISCOMFORT; Start 12/14/18 at 14:00 Al Hydrox/Mg Hydrox/Simethicone (Mylanta) 30 ml Q4HP PRN PO HEARTBURN/INDIGESTION; Start 12/14/18 at 14:00 Aripiprazole (AbiLIFY) 2.5 mg QHS PO Last administered on 12/16/18 21:01; Start 12/14/18 at 21:00; Stop 12/17/18 at 15:09; Status DC Aripiprazole (AbiLIFY) 5 mg QHS PO Last administered on 12/18/18at 21:59; Start 12/17/18 at 21:00 Bupropion HCl (Wellbutrin Xl) 150 mg DAILY PO Last administered on 12/19/18at 08:46; Start 12/17/18 at 09:00 Gabapentin (Neurontin) 200 mg TID PO Last administered on 12/19/18at 08:46; St art 12/14/18 at 16:00 Hydroxyzine HCl (Atarax) 50 mg Q6HP PRN PO ANXIETY/AGITATION Last administered on 12/19/18at 00:14; Start 12/14/18 at 14:15 Magnesium Hydroxide (Milk Of Magnesia) 30 ml DAILYPRN PRN PO CONSTIPATION; Start 12/14/18 at 14:00 Nicotine (Nicoderm Cq 21mg) 1 patch DAILY TD Last administered on 12/19/18at 08:47; Start 3/26/19 at 09:00 Olanzapine (ZyPREXA ZYDIS) 5 mg Q4HP PRN PO aggitation Last administered on 12/15/18at 22:00; Start 12/14/18 at 14:00 Propranolol HCl (Inderal) 10 mg TIDP PRN PO ANXIETY/AGITATION Last administered on 12/15/18at 22:00; Start 12/14/18 at 14:15; Stop 12/18/18 at 13:37; Status DC Sertraline HCl (Zoloft) 75 mg DAILY PO ; Start 12/15/18 at 09:00; Stop 12/16/18 at 15:59; Status DC Trazodone HCl (Desyrel) 50 mg QHSP PRN PO INSOMNIA Last administered on 12/18/18at 21:59; Start 12/14/18 at 14:00 Allergies Coded Allergies: No Known Allergies (Unverified , 03/29/18) ANAIS RAMOS PGY-1 Dec 19, 2018 12:25
[2018-12-19 18:00] VITALS: BP 149/62
[2018-12-19] MEDS ORDERED: MIRTAZAPINE 15 MG TAB PO SCH (21:00)
[2018-12-20 06:23] VITALS: BP 110/57
[2018-12-20 08:26] LABS: CHOLESTEROL RISK RATIO 2.718 (<5)
[2018-12-20] MEDS: buPROPion **XL** TABLET 150MG (WELLBUTRIN XL) PO SCH (09:14)
[2018-12-20] MEDS: GABAPENTIN 100 MG CAP PO SCH (09:14)
[2018-12-20] MEDS: NICOTINE 21MG/24HR 1 EA TRANSDERMAL TD SCH (09:15)
[2018-12-20 09:29] LABS: HEMOGLOBIN A1c 5.6 %
--- NOTE | 2018-12-20 09:47 | MHIPNPDOC ---
[facility] Progress Note Progress Note DATE OF SERVICE: 12/20/18 HISTORY: See HPI. Interval History: Patient reports sleep was "good" last night with the mirtazapine. States he is annoyed waiting fo chain of command planning and is trying not to be angry. Says its frustrating he slept through breakfast, but that the medications are helping him to remain calmer. Denies SI/AVH/gwen. Denies HI currently, but says he has chronic anger towards his command. Appetite is good. VITALS: see below. NEW TEST RESULTS: Hba1c 5.6 %, lipid panel within normal limits. CURRENT MEDICATIONS: See below. MENTAL STATUS EXAMINATION: Patient is a 23 year old male, who is sitting in a chair in casual clothing, glasses, fair hygiene, cooperative, pleasant. Speech: Is logical, linear Language skills are Thought processes including: linear, logical Thought content: Reports he is unstable. Abstract reasoning, and computation: intact. Description of associations:intact Description of abnormal or psychotic thoughts: Denies Judgment: poor Insight: improving Orientation: x4 Recent and remote memory: intact Attention span and concentration: good Language: macedonian Fund of knowledge: good Mood: "fine" Affect: dysthymic, blunted, mood-incongruent, does smile. DIAGNOSES: 1. Major Depressive Disorder with anxious distress, recurrent, severe 2. Panic disorder 3. Cannabis use disorder 4. Narcissistic traits ASSESSMENT: Patient is a 23 y/o male with 4 admissions to inpatient mental health. Reports depression and anxiety with recurring panic attacks. Per [facility] he has an unspecified personality disorder and narcissistic traits. He denies any p ast suicide attempts but reports chronic SI/HI on admission. Reports he wants to be chaptered out of the and to return home with his . Agrees to medication changes. Today reports mood is "fine" and that sleep has improved. Cedrick SI/HI/AVH/ma bianca. Educated on substance use and cannabis use in particular. MANAGEMENT PLAN: Continue abilify 5 mg PO QHS, continue wellbutrin XL 150 mg Po daily for mood/anxiety, continue gabapentin 200 mg PO TID for panic attacks, PRN atarax for anxiety/panic attacks. MIrtazapine 30 mg PO QHs for sleep. Continue mirtazapine 30 mg PO QHS for sleep. Will monitor for SI/HI/depressed mood, anx iety , panic attacks, medication side effects. TIME SPENT: 10 minutes. Vital Signs Vital Signs Date Time Temp Pulse Resp B/P (MAP) Pulse Ox O2 Delivery O2 Flow Rate FiO2 12/20/18 06:23 98.2 60 12 110/57 (74) 12/17/18 08:33 Room Air 12/14/18 15:55 100 Laboratory Data 24H Labs Laboratory Tests 2 12/20/18 07:19: Estimated Mean Plasma Glucose 114H, Hemoglobin A1c 5.6, Triglycerides Level 85, LDL Cholesterol 93, Total Cholesterol 174, Non-HDL Cholesterol (LDL + VLDL) 110, Total HDL Cholesterol 64, Cholesterol/HDL Ratio 2.718 Current Medications Current Medications Acetaminophen (Tylenol Tab) 650 mg Q6HP PRN PO HEADACHE or DISCOMFORT; Start 12/14/18 at 14:00 Al Hydrox/Mg Hydrox/Simethicone (Mylanta) 30 ml Q4HP PRN PO HE ARTBURN/INDIGESTION; Start 12/14/18 at 14:00 Aripiprazole (AbiLIFY) 2.5 mg QHS PO Last administered on 12/16/18 21:01; Start 12/14/18 at 21:00; Stop 12/17/18 at 15:09; Status DC Aripiprazole (AbiLIFY) 5 mg QHS PO Last administered on 12/19/18 21:45; Start 12/17/18 at 21:00 Bupropion HCl (Wellbutrin Xl) 150 mg DAILY PO Last administered on 12/20/18 09:14; Start 12/17/18 at 09:00 Gabapentin (Neurontin) 200 mg TID PO Last administered on 12/20/18 09:14; Start 12/14/18 at 16:00 Hydroxyzine HCl (Atarax) 50 mg Q6HP PRN PO ANXIETY/AGITATION Last administered on 12/19/18 12:26; Start 12/14/18 at 14:15 Magnesium Hydroxide (Milk Of Magnesia) 30 ml DAILYPRN PRN PO CONSTIPATION; Start 12/14/18 at 14:00 Mirtazapine (Remeron) 30 mg QHS PO Last administered on 12/19/18at 21:45; Start 12/19/18 at 21:00 Nicotine (Nicoderm Cq 21mg) 1 patch DAILY TD Last administered on 3/28/19at 09:15; Start 12/18/18 at 09:00 Olanzapine (ZyPREXA ZYDIS) 5 mg Q4HP PRN PO aggitation Last administered on 12/15/18at 22:00; Start 12/14/18 at 14:00 Propranolol HCl (Inderal) 10 mg TIDP PRN PO ANXIETY/AGITATION Last administered on 12/15/18at 22:00; Start 12/14/18 at 14:15; Stop 12/18/18 at 13:37; Status DC Sertraline HCl (Zoloft) 75 mg DAILY PO ; Start 12/15/18 at 09:00; Stop 12/16/18 at 15:59; Status DC Trazodone HCl (Desyrel) 50 mg QHSP PRN PO INSOMNIA Last administered on 12/18/18at 21:59; Start 12/14/18 at 14:00; Stop 12/19/18 at 12:23; Status DC Allergies Coded Allergies: No Known Allergies (Unverified , 03/29/18) ANAIS RAMOS PGY-1 Dec 20, 2018 09:47
[2018-12-20] MEDS ORDERED: ARIP5TA PO (11:03)
[2018-12-20] MEDS ORDERED: BUPR150T3 PO (11:03)
[2018-12-20] MEDS ORDERED: MIRT15TA3 PO (11:03)
[2018-12-20] MEDS: hydrOXYzine 50 MG TAB PO PRN (11:21)
--- NOTE | 2018-12-22 10:23 | MHDSPDOC ---
[facility] Discharge Summary Discharge Summary DATE OF ADMISSION: Dec 14, 2018 at 13:55 DATE OF DISCHARGE: Dec 20, 2018 at 13:09 DISCHARGE DIAGNOSES: 1. Major Depressive Disorder with anxious distress, recurrent, severe 2. Panic disorder 3. Cannabis use disorder 4. Narcissistic traits REASON FOR ADMISSION: Per H and P by Dr. Gipson 12/14/18: "He is 23 years old. He is . He is active duty at [employer].This is one of several hospitalizations. He was last here just over a month ago, early October 2018, was seen by Dr. Redding, please see the discharge summary fordetails related to that admission, which apparently was his third admission. He is on Zoloft at 75 mg daily, gabapentin 200 mg three times a day, Abilify 2.5 mg at night. He was discharged on those medicines. He was seen at [facility]. He was brought into the hospital a couple of days ago as he had gone out into the [place], says had driven out, was feeling stressed, suicidal, says had been drinking, was brought to the hospital, and was discharged. He was brought back yesterday, as he was found in the stairwell of a building at work, was crying, indicating he wanted to end his life. He says he is leaving the , uncertain when, and is frustrated the chain of command particularly, as he says he is told often that there is help available, but that he does not receive it, also suggests has been told that he is "faking it."" CONSULTANTS INVOLVED: None TREATMENT AND PROGRESS ON THE UNIT : Patient was admitted on a DCS (9.37) involuntary status from [employer], due to being found crying in stairwell and making suicidal statements. He is in the process of being chartered out of the and felt he was not receiving enough mental health [place]. Per mental health assessment on base, he was running away and being poorly cooperative with command. He was started on wellbutrin xl 150 mg Po daily for mood/anxiety (reported erectile dysfunction with zoloft), and continued on home medications abilify titrated up to 5 mg Po QHS for augmentation of antidepressant, gabapentin 200 mg PO TID for anxiety/panic attacks, started on mirtazapine 30 mg PO QHS for sleep. As needed zyprexa was discontinued as he was routinely taking the medication with other medications despite low anxiety. During stay he was disruptive in groups, spent majority of the time on the telephone in the corridor an was concerned about returning to [facility]. Reported chronic homicidal ideation, but said he would not go through with the thoughts and that they had been there for years. Initially endorsed suicidal ideations, but during course of stay denied suicidal ideations on in depth interview. Denied side effects from medications other than as needed trazodone which was discontinued due to ineffective aid for sleep and morning sedation. He [place] on base, which was positive in urine toxicology. He was counselled regarding cannabis use risks, side effects, interactions with medications and that it may worsen mood/anxiety. He also received as needed 50 mg hydroxyzine for anxiety/agitation during stay, which he reported helped with his symptoms. HOSPITAL COURSE: See above. DISCHARGE ASSESSMENT: On discharge he calm, in no acute distress, alert and corin ented x4, reports improved mood but endorses anxiety related to returning to [facility]. On chain of command meeting he told them specifically he wanted to kill them directly to their faces. He was put in handcuffs and escorted to base. He denied suicidal ideations, gwen or hallucinations or paranoia. His EKG, CBC and cmp was unremarkable, lipid panel was within normal limits, hba1c was 5.6%. Patient should have follow-up EKG for monitoring to ensure no QTc prolongation on medications. MENTAL STATUS EXAMINATION ON DISCHARGE: Patient is a 23 year old male, who is sitting in a chair in casual clothing, glasses, fair hygiene, cooperative, pleasant. Speech: Is logical, linear Language skills are Thought processes including: linear, logical Thought content: Reports he is unstable. Abstract reasoning, and computation: intact. Description of associations:intact Description of abnormal or psychotic thoughts: Denies Judgment: poor Insight: improving Orientation: x4 Recent and remote memory: intact Attention span and concentration: good Language: lithuanian Fund of knowledge: good Mood: "okay" Affect: mild anxiety, constricted, mood-congruent, does smile. MEDICATIONS ON DISCHARGE: Scheduled Aripiprazole (Aripiprazole) 5 Mg Tab, 5 MG PO QHS for mood augmentation Bupropion Hcl (Bupropion HCl Xl) 150 Mg Tab, 150 MG PO DAILY for depression Gabapentin (Gabapentin) 100 Mg Cap, 200 MG PO TID for anxiety Mirtazapine (Mirtazapine) 15 Mg Tab, 30 MG PO QHS for depression Nicotine (Nicotine Transdermal Syst) 14 Mg/24 Hr Dis, 1 PATCH TD DAILY for nicotine withdrawals Scheduled PRN Hydroxyzine HCl (Hydroxyzine HCl) 50 Mg Tab, 50 MG PO Q6HP PRN for A NXIETY/AGITATION Ibuprofen (Ibuprofen) 800 Mg Tab, 800 MG PO TID PRN for PAIN PLAN/FOLLOWUP ARRANGEMENTS: Follow Up Care Education Label * Mental Health Appt 1 * Mental Health [facility] * Established With This Provider Yes * Additional information BEHAVIORAL HEALTH CL/DRUM1 DARVIN JOSUE [id number] FTR/30 PENDING Therapy f/u BEHAVIORAL HEALTH CL/DRUM1 JENI,DIANELYS [id number]@0900 FTR/60 PENDING BEHAVIORAL HEALTH CL/DRUM1 JENI,DIANELYS [id number]@0900 FTR/60 PENDING BEHAVIORAL HEALTH CL/DRUM1 JENI,DIANELYS [id number]@0900 FTR/60 PENDING BEHAVIORAL HEALTH CL/DRUM1 JENI,DIANELYS [id number]@0900 FTR/60 PENDING Follow Up Care Education Label * Chemical Dependency Appt1 * Chemical Dependency [facility] * Established With This Provider Yes * Additional information [facility]/DRUM1 ZACKARY PARRA [id number] FTR/60 PENDING Follow Up Care Education Label * Medical * Medical Follow Up [facility] * Established With This Provider Yes * Therapist PROVIDER SHIMA * Date Jan 01, 2019 * Time 09:20 * * Additional information Remember to bring your ID and insurance card. The amount of time spent in the coordination of care for this patient was approximately 15 minutes. Vital Signs/I&Os Vital Signs Date Time Temp Pulse Resp B/P (MAP) Pulse Ox O2 Delivery O2 Flow Rate FiO2 12/20/18 06:23 98.2 60 12 110/57 (74) 12/17/18 08:33 Room Air 12/14/18 15:55 100 Laboratory Data Labs 24H Laboratory Tests 2 12/20/18 07:19: Estimated Mean Plasma Glucose 114H, Hemoglobin A1c 5.6, Triglycerides Level 85, LDL Cholesterol 93, Total Cholesterol 174, Non-HDL Cholesterol (LDL + VLDL) 110, Total HDL Cholesterol 64, Cholesterol/HDL Ratio 2.718 Medications Scheduled Aripiprazole (Aripiprazole) 5 Mg Tab, 5 MG PO QHS for mood augmentation, #7 Bupropion Hcl (Bupropion HCl Xl) 150 Mg Tab, 150 MG PO DAILY for depression, #7 Gabapentin (Gabapentin) 100 Mg Cap, 200 MG PO TID for anxiety, #21 Mirtazapine (Mirtazapine) 15 Mg Tab, 30 MG PO QHS for depression, #7 Nicotine (Nicotine Transdermal Syst) 14 Mg/24 Hr Dis, 1 PATCH TD DAILY for nicotine withdrawals, #7 Scheduled PRN Hydroxyzine HCl (Hydroxyzine HCl) 50 Mg Tab, 50 MG PO Q6HP PRN for ANXIETY/AGITATION, #28 Ibuprofen (Ibuprofen) 800 Mg Tab, 800 MG PO TID PRN for PAIN, (Reported) Allergies Coded Allergies: No Known Allergies (Unverified , 03/29/18) ANAIS RAMOS PGY-1 Dec 20, 2018 13:42
== END 2018-12-20 13:09 | disposition home or self-care (01) | DRG 885 ==
LOC: M ED 08:05 → M ED INP 13:55 → M PSY 15:49
PROVIDERS: ADMIT Psychiatry & Neurology Psychiatry; ATTEND Psychiatry & Neurology Psychiatry
DX: F33.2 Major depressive disorder, recurrent severe without psychotic features (principal); F41.0 Panic disorder [episodic paroxysmal anxiety]; F12.10 Cannabis abuse, uncomplicated; Z79.899 Other long term (current) drug therapy; Z62.811 Personal history of psychological abuse in childhood; F60.81 Narcissistic personality disorder